=== PATIENT | female | born 1950 | race Caucasian/White ===

== ENCOUNTER 2021-05-16 12:10 | Outpatient (CLI) | payer BC, SELFPAY ==
--- NOTE | ~2021-05-16 | XR_ITS ---
XR thoracic spine 3V DATE: 05/16/2021 12:47 INDICATION: Back pain TECHNIQUE: AP, lateral, swimmer views COMPARISON: None FINDINGS: There is diffuse osteopenia. There is mild anterolisthesis at C4-5. There is severe degenerative disc disease at C5-6. The thoracic pedicles are intact. No fracture or bone destruction is detected. There is degenerative spurring of the thoracic spine, more prominent in the lower thoracic spine. No paraspinal soft tissue thickening. IMPRESSION: Osteopenia Mild anterolisthesis at C4-5 Severe degenerative disc disease at C5-6 Degenerative spurring of the thoracic spine, greater in the lower thoracic region Reviewed, dictated and finalized at location B. IMPRESSION: Osteopenia Mild anterolisthesis at C4-5 Severe degenerative disc disease at C5-6 Degenerative spurring of the thoracic spine, greater in the lower thoracic judy on
== END 2021-05-16 12:11 | disposition home or self-care (01) ==
LOC: CHSIMG 12:16
PROVIDERS: PCP Family Medicine; Visit Provider Family Medicine
DX: M54.9 Dorsalgia, unspecified (principal)
CPT/HCPCS: 72072

== ENCOUNTER 2021-08-29 08:22 | Emergency (ER) | payer BC, SELFPAY ==
[2021-08-29 09:07] VITALS: BP 210/108; PULSE 98; RESP 20; TEMP 36.1; O2SAT 98
--- NOTE | 2021-08-29 09:11 | ED.BACK ---
HPI - Back Pain/Injury General Chief Complaint: Unspecified Stated Complaint: back pain/possible UTI/spasm back to front Time Seen by Provider: 08/29/21 09:11 Source: patient and family Mode of arrival: ambulatory Limitations: no limitations History of Present Illness HPI Narrative: 70-year-old woman with a history of chronic low back pain comes emergency department complaining of worsening pain in her low back, and pain in both flanks. She states she has been having intermittent burning pain in her upper back and sides and that the pain is severe. She denies worsening incontinence, hematuria, dysuria and urinary frequency. She states that she is not had a bowel movement in 3 days. She denies fever, nausea, vomiting, abdominal pain, sore throat, cough or cold symptoms, rash and has no lower extremity weakness or numbness. MD elicited complaint: back pain Pertinent past history: prior back pain Onset (ago): day(s) (2) Timing: constant and progressively worsening Severity: severe Similar Symptoms Previously: Yes Quality: burning, sharp and aching Location: lumbar spine, left flank and right flank Radiation: none Exacerbating factors: movement and sitting upright Relieving factors: immobilization Associated symptoms: difficulty walking (Antalgic gait) Treatments prior to arrival: NSAIDS, acetaminophen and prescription analgesics (Muscle relaxer) Related Data Home Medications Medication Instructions Recorded Confirmed albuterol sulfate [ProAir HFA] 2 puff INHALATION QID 08/29/21 08/29/21 atorvastatin 40 mg PO HS 08/29/21 08/29/21 cyclobenzaprine 10 mg PO TID PRN 08/29/21 08/29/21 levothyroxine 125 mcg PO DAILY 08/29/21 08/29/21 lisinopril 20 mg PO DAILY 08/29/21 08/29/21 Allergies Allergy/AdvReac Type Severity Reaction Status Date / Time No Known Allergies Allergy Verified 08/29/21 09:17 Review of Systems Review of Systems: All systems reviewed & are unremarkable except as noted in HPI and below Constitutional: Constitutional: Denies chills, Denies fever(s) and Denies weakness ENT: Denies nasal congestion and Denies sore throat Cardiovascular: Cardiovascular: Denies chest pain and Denies radiating jaw, neck or arm pain Respiratory: Respiratory: Denies cough, Denies dyspnea and Denies wheezing Gastrointestinal: Gastrointestinal: Denies abdominal pain, Reports constipation, Denies diarrhea, Denies nausea and Denies vomiting Genitourinary: Genitourinary: Denies hematuria, Denies nocturia, Denies dysuria and Reports urinary incontinence (Longstanding, frequent and mild stress incontinence) Musculoskeletal: Musculoskeletal: Reports back pain, Denies arthralgias and Denies joint swelling Integumentary/Breasts: Skin/Breast: Denies pruritus, Denies erythema and Denies rash Neurologic: Denies vertigo, Denies dizziness, Denies syncope and Denies weakness Hematologic/Lymphatic: Hematologic/Lymphatic: Denies easy bleeding and Denies easy bruising Allergic/Immunologic: Allergic/Immunologic: Denies lip swelling and Denies throat swelling PMFSH Past Medical History Medical History (Updated 08/29/21 @ 11:32 by Jese Aldrich MD) Chronic low back pain COPD (chronic obstructive pulmonary disease) Dyslipidemia Hypertension Hypothyroidism Surgical History Surgical History (Updated 08/29/21 @ 09:52 by Jese Aldrich MD) History of Social History Social History (Updated 08/29/21 @ 09:52 by Jese Aldrich MD) Smoking status: Current every day smoker Substance use: never Living arrangements: with family Exam Const: General: alert Nutritional Appearance: well nourished Orientation/consciousness: patient oriented x3 Limitations: no limitations Other: Moderate acute distress. HENMT: Mouth: Yes moist mucous membranes Throat: posterior oropharynx normal Eyes: Conjunctivae: conjunctivae normal Pupils: Equal, round and reactive pupils present EOM: EOMs intact bilaterally Resp: Eff
[2021-08-29 09:20] LABS: Add Urine Microscopic? YES; Appearance Urine Clear (Clear); Bilirubin Urine Negative (Negative); Blood Urine 2+ (Negative); Color Urine Light Yellow (Yellow); Glucose Urine UA Negative (Negative); Ketones Urine 1+ (Negative); Leukocyte Esterase Ur 1+ (Negative); Nitrate Urine Negative (Negative); Protein Urine Trace (Negative); Specific Grav Ur 1.025 (1.010-1.020); Urobilinogen Urine 0.2 mg/dL (0.2-1.0); pH Urine 6.5 (5.0-8.0)
[2021-08-29 09:28] LABS: Bacteria Urine 1+ /hpf; Squamous Epithelial Cell Urine Moderate /hpf (Few)
[2021-08-29] MEDS: HYDROmorphone HCL INJ (*CRX) 2 MG/ML VIAL 0.5 MG IV PUSH (09:35)
[2021-08-29] MEDS: ONDANSETRON INJ 4 MG/2 ML VIAL IV PUSH (09:36)
[2021-08-29 09:58] LABS: Basophils Absolute Auto 0.05 K/mm3 (0.00-0.10); Basophils Percent Auto 0.4 % (0.0-1.0); Eosinophils Absolute Auto 0.03 K/mm3 (0.02-0.50); Eosinophils Percent Auto 0.3 % (1.0-6.0); Hematocrit 48.6 % (35.0-42.0); Hemoglobin 15.5 g/dL (11.7-13.8); Immature Granulocyte Absolute 0.02 K/mm3 (0.00-0.00); Immature Granulocyte Percent A 0.2 % (0.0-0.0); Lymphocytes Absolute Auto 2.09 K/mm3 (1.10-4.50); Mean Corpuscular HGB Conc 31.9 g/dL (32.0-36.0); Mean Corpuscular Hemoglobin 28.6 pg (27.0-31.0); Mean Corpuscular Volume 89.7 fL (78.0-102.0); Mean Platelet Volume 10.6 fl (9.2-11.8); Monocytes Absolute Auto 0.69 K/mm3 (0.10-0.90); Monocytes Percent Auto 5.9 % (2.0-11.0); Neutrophils Absolute Auto 8.7 K/mm3 (1.7-7.2); Neutrophils Percent Auto 75.2 % (50.0-70.0); Platelet Count Result 267 K/mm3 (150-420); Red Blood Count 5.42 M/mm3 (4.20-5.40); Red Cell Distribution Width 15.4 % (11.6-14.4); White Blood Count 11.6 K/mm3 (4.8-10.8)
[2021-08-29 10:12] LABS: Alanine Aminotransferase 17 U/L (14-59); Albumin Level 3.6 g/dL (3.4-5.0); Alkaline Phosphatase 229 U/L (46-116); Anion Gap 12 mmol/L (8-16); Aspartate Amino Transferase 15 U/L (15-37); Bilirubin,Total 0.6 mg/dL (0.00-1.00); Blood Urea Nitrogen 11 mg/dL (7-18); Carbon Dioxide 26 mmol/L (21-32); Chloride 95 mmol/L (98-108); Estimated CRCL calculation 62 ml/min; Estimated Glomerular Filt Rate > 60; Glucose 114 mg/dL (70-99); Osmolality Calculated 276 mOsm/kg (285-295); Potassium 3.8 mmol/L (3.5-5.1); Sodium 133 mmol/L (136-145); Total Protein 8.4 g/dL (6.4-8.2)
[2021-08-29 12:43] VITALS: BP 159/100; PULSE 82; RESP 20; TEMP 36.5; O2SAT 97
--- NOTE | 2021-08-29 17:18 | PC.NURSE ---
Family called stating [facility] was out of the [address] Valdemar stark to change prescription to 250 mg, [address] Aldrich also spoke with Iris from [facility].
== END 2021-08-29 12:51 | disposition home or self-care (01) ==
PROVIDERS: Emergency Provider Emergency Medicine; PCP Family Medicine
DX: N12 Tubulo-interstitial nephritis, not specified as acute or chronic (principal); M54.50 Low back pain, unspecified
CPT/HCPCS: 36415; 80053; 81001; 85025; 87040; 96365; 96375; 99283; 99284; J1170; J1956; J2405

== ENCOUNTER 2021-08-31 14:23 | Emergency (ER) | payer BC, SELFPAY ==
--- NOTE | ~2021-08-31 | CT_ITS ---
EXAMINATION: CT abdomen pelvis w con DATE: 08/31/2021 17:52 INDICATION: Low abdominal pain, nausea, constipation for 5 days. TECHNIQUE: Computed tomography (CT) of the abdomen and pelvis was performed with 100 cc Omnipaque 350 intravenous contrast. Automated exposure control and iterative reconstruction technique were employe d. Exam dose: 1201.30 mGy-cm total exam DLP. COMPARISON: None. FINDINGS: Minimal dependent posterior right lower lobe atelectasis. Minimal atelectasis at the left l pb base. Normal heart size. No pericardial or pleural effusion. Small sliding hiatal hernia. The liver, gallbladder, bile ducts, pancreas, pancreatic duct and spleen as well as adrenal glands ap pear normal. 4.1 cm left renal cyst. Several right renal cyst measuring approximately 7.5, 6 and 16 mm dimension. 8.3 x 16 mm posterior mid to lower right renal calculus with attenuation of 1700 Hounsfield units. The urinary bladder is unremarkable. 2.1 cm left ovarian cyst. The uterus and adnexal areas are otherwise unremarkable. No CT evidence of appendicitis. There is some fluid levels in the ascending and transverse colon. The re is a prominent amount fecal material in the ascending colon and cecum into a lesser extent rectum and sigmoid colon. No bowel obstruction, bowel wall thickening, pneumatosis or intraperitoneal free a ir is detected. There is atherosclerotic calcification of the abdominal aorta and prominent calcification at the orig ins of the renal arteries. No abdominal aortic aneurysm. No intraperitoneal or retroperitoneal or pel bandar mass lesion or adenopathy or ascites is detected. There is extensive mixed lytic and osteosclerotic metastatic disease scattered throughout the visuali zed lower thoracic and lumbar spine and pelvic bones, sacrum, proximal femurs There are large lytic lesions at T8-T9 vertebral bodies posteriorly on the right, extending into the posterior elements and spinal canal. 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 Large lytic lesion s at posterior right T8 and T9 vertebrae, extending into the thoracic spinal canal Reviewed, dictated and finalized at Location A. Reviewed, dictated and finalized at location A. ITAL TECHNICIAN IMPRESSION: Small sliding hiatal hernia Bilateral renal cysts 8.3 x 16 mm nonobstructing right renal calculus 2 x 1 cm left ovarian cyst Fluid levels in the right colon, moderate amount of fecal material in the colon ; no bowel obstruction Extensive mixed lytic and osteosclerotic metastatic disease of the axial skelet on. Large lytic lesions at posterior right T8 and T9 vertebrae, extending into the thoracic spinal canal
[2021-08-31 15:10] VITALS: BP 159/96; PULSE 95; RESP 20; TEMP 36.1; O2SAT 95
--- NOTE | 2021-08-31 15:45 | ED.BACK ---
HPI - Back Pain/Injury General Chief Complaint: Unspecified Stated Complaint: kidney injection/no bowel movement since 08/26/2021 Time Seen by Provider: 08/31/21 15:45 Source: patient Mode of arrival: ambulatory Limitations: no limitations History of Present Illness HPI Narrative: 70-year-old woman comes in today complaining of back pain and constipation. Patient was seen here 5 days ago and prescribed Cipro after was thought she had pyelonephritis. She states that she has not passed stool, is not eating well and not drinking well. She has had no vomiting, fever, blood in her stool, cough or cold symptoms, chest pain or shortness of breath. Her daughter gave her an enema this morning and she has been taking oral [id number] pills for her constipation. MD elicited complaint: back pain Pertinent past history: prior back pain Onset (ago): week(s) Timing: constant Severity: severe Similar Symptoms Previously: Yes Quality: sharp and aching Location: lumbar spine and thoracic spine Exacerbating factors: movement Relieving factors: none Associated symptoms: abdominal pain Treatments prior to arrival: prescription analgesics Work related injury: No Related Data Home Medications Medication Instructions Recorded Confirmed albuterol sulfate [ProAir HFA] 2 puff INHALATION QID 08/29/21 08/31/21 atorvastatin 40 mg PO HS 08/29/21 08/31/21 cyclobenzaprine 10 mg PO TID PRN 08/29/21 08/31/21 levothyroxine 125 mcg PO DAILY 08/29/21 08/31/21 lisinopril 20 mg PO DAILY 08/29/21 08/31/21 Allergies Allergy/AdvReac Type Severity Reaction Status Date / Time No Known Allergies Allergy Verified 08/31/21 15:17 Review of Systems Review of Systems: All systems reviewed & are unremarkable except as noted in HPI and below Constitutional: Constitutional: Denies chills and Denies fever(s) Eyes: Eyes: Denies photophobia ENT: Denies nasal congestion and Denies sore throat Cardiovascular: Cardiovascular: Denies chest pain Respiratory: Respiratory: Denies cough, Denies dyspnea and Denies wheezing Gastrointestinal: Gastrointestinal: Reports abdominal pain, Reports constipation, Denies diarrhea, Reports nausea and Denies vomiting Genitourinary: Genitourinary: Denies hematuria, Denies nocturia and Denies dysuria Musculoskeletal: Musculoskeletal: Reports back pain, Denies arthralgias and Denies joint swelling Integumentary/Breasts: Skin/Breast: Denies pruritus, Denies erythema and Denies rash Neurologic: Denies vertigo, Denies dizziness, Denies syncope, Denies focal weakness and Denies numbness Hematologic/Lymphatic: Hematologic/Lymphatic: Denies easy bleeding and Denies easy bruising Allergic/Immunologic: Allergic/Immunologic: Denies lip swelling and Denies throat swelling PMFSH Past Medical History Medical History Chronic low back pain COPD (chronic obstructive pulmonary disease) Dyslipidemia Hypertension Hypothyroidism Surgical History Surgical History History of Social History Social History Smoking status: Current every day smoker Substance use: never Exam Const: General: healthy appearing and alert Nutritional Appearance: well nourished Orientation/consciousness: patient oriented x3 Limitations: no limitations Other: Moderate acute distress. HENMT: Mouth: Yes moist mucous membranes Throat: posterior oropharynx normal Eyes: Conjunctivae: conjunctivae normal Pupils: Equal, round and reactive pupils present EOM: EOMs intact bilaterally Resp: Effort & Inspection: normal respiratory effort and not labored Auscultation: clear to auscultation bilaterally, no rales, no rhonchi and no wheezes Cardio: Rate: regular rate Rhythm: regular rhythm Heart sounds: no murmurs GI: GI Palp: Yes Soft to palpation and Yes Tenderness to palpation pre
[2021-08-31] MEDS: ONDANSETRON INJ 4 MG/2 ML VIAL IV PUSH (16:19)
[2021-08-31] MEDS: SODIUM CHLORIDE 0.9% IV 1,000 ML 999 ML IV CONT ×2 (16:19→18:58)
[2021-08-31 16:58] LABS: Alanine Aminotransferase 20 U/L (14-59); Albumin Level 3.4 g/dL (3.4-5.0); Alkaline Phosphatase 223 U/L (46-116); Anion Gap 12 mmol/L (8-16); Aspartate Amino Transferase 34 U/L (15-37); Bilirubin,Total 0.4 mg/dL (0.00-1.00); Blood Urea Nitrogen 24 mg/dL (7-18); Calcium 9.1 mg/dL (8.5-10.1); Carbon Dioxide 25 mmol/L (21-32); Chloride 94 mmol/L (98-108); Estimated CRCL calculation 51 ml/min; Estimated Glomerular Filt Rate 57; Glucose 110 mg/dL (70-99); Osmolality Calculated 277 mOsm/kg (285-295); Potassium 3.8 mmol/L (3.5-5.1); Sodium 131 mmol/L (136-145); Total Protein 7.4 g/dL (6.4-8.2)
[2021-08-31 16:59] LABS: Occult Blood Negative (Negative)
[2021-08-31 16:59] LABS: Basophils Absolute Auto 0.05 K/mm3 (0.00-0.10); Basophils Percent Auto 0.3 % (0.0-1.0); Eosinophils Absolute Auto 0.05 K/mm3 (0.02-0.50); Eosinophils Percent Auto 0.3 % (1.0-6.0); Hematocrit 47.4 % (35.0-42.0); Hemoglobin 15.3 g/dL (11.7-13.8); Immature Granulocyte Absolute 0.07 K/mm3 (0.00-0.00); Immature Granulocyte Percent A 0.5 % (0.0-0.0); Lymphocytes Percent Auto 23.1 % (18.0-42.0); Mean Corpuscular HGB Conc 32.3 g/dL (32.0-36.0); Mean Corpuscular Hemoglobin 29.2 pg (27.0-31.0); Mean Corpuscular Volume 90.5 fL (78.0-102.0); Mean Platelet Volume 12.3 fl (9.2-11.8); Neutrophils Absolute Auto 9.8 K/mm3 (1.7-7.2); Neutrophils Percent Auto 68.8 % (50.0-70.0); Platelet Count Result 276 K/mm3 (150-420); Red Blood Count 5.24 M/mm3 (4.20-5.40); Red Cell Distribution Width 15.9 % (11.6-14.4); White Blood Count 14.3 K/mm3 (4.8-10.8)
[2021-08-31] MEDS: HYDROmorphone HCL INJ (*CRX) 2 MG/ML VIAL 0.5 MG IV PUSH (17:54)
== END 2021-08-31 19:42 | disposition home or self-care (01) ==
PROVIDERS: Emergency Provider Emergency Medicine; PCP Family Medicine
DX: M89.9 Disorder of bone, unspecified (principal); K59.03 Drug induced constipation
CPT/HCPCS: 36415; 74177; 80053; 82272; 85025; 96361; 96374; 96375; 99283; 99284; J1170; J2405; J7030; Q9967

== ENCOUNTER 2021-09-02 14:34 | Outpatient (CLI) | payer BC, SELFPAY ==
[2021-09-02 14:55] LABS: Basophils Absolute Auto 0.05 K/mm3 (0.00-0.10); Basophils Percent Auto 0.4 % (0.0-1.0); Eosinophils Absolute Auto 0.03 K/mm3 (0.02-0.50); Eosinophils Percent Auto 0.2 % (1.0-6.0); Hematocrit 48.6 % (35.0-42.0); Hemoglobin 15.1 g/dL (11.7-13.8); Immature Granulocyte Absolute 0.04 K/mm3 (0.00-0.00); Immature Granulocyte Percent A 0.3 % (0.0-0.0); Lymphocytes Absolute Auto 3.19 K/mm3 (1.10-4.50); Lymphocytes Percent Auto 25.6 % (18.0-42.0); Mean Corpuscular HGB Conc 31.1 g/dL (32.0-36.0); Mean Corpuscular Hemoglobin 28.2 pg (27.0-31.0); Mean Corpuscular Volume 90.7 fL (78.0-102.0); Mean Platelet Volume 10.6 fl (9.2-11.8); Monocytes Percent Auto 9.6 % (2.0-11.0); Neutrophils Absolute Auto 7.9 K/mm3 (1.7-7.2); Neutrophils Percent Auto 63.9 % (50.0-70.0); Platelet Count Result 266 K/mm3 (150-420); Red Blood Count 5.36 M/mm3 (4.20-5.40); Red Cell Distribution Width 15.1 % (11.6-14.4); White Blood Count 12.5 K/mm3 (4.8-10.8)
[2021-09-02 14:56] LABS: Add Urine Microscopic? YES; Appearance Urine Clear (Clear); Bilirubin Urine Negative (Negative); Blood Urine 1+ (Negative); Color Urine Light Yellow (Yellow); Glucose Urine UA Negative (Negative); Ketones Urine Negative (Negative); Leukocyte Esterase Ur 1+ (Negative); Nitrate Urine Negative (Negative); Protein Urine Trace (Negative); Specific Grav Ur >= 1.030 (1.010-1.020); Urobilinogen Urine 0.2 mg/dL (0.2-1.0); pH Urine 5.5 (5.0-8.0)
[2021-09-02 15:04] LABS: Bacteria Urine 2+ /hpf; RBC Urine 0-2 /hpf (0-2); Renal Epithelial Cells Urine Few /hpf; Squamous Epithelial Cell Urine Few /hpf (Few)
[2021-09-02 15:40] LABS: Alanine Aminotransferase 16 U/L (14-59); Albumin Level 3.4 g/dL (3.4-5.0); Alkaline Phosphatase 241 U/L (46-116); Anion Gap 9 mmol/L (8-16); Aspartate Amino Transferase 21 U/L (15-37); Bilirubin,Total 0.7 mg/dL (0.00-1.00); Blood Urea Nitrogen 12 mg/dL (7-18); Calcium 9.8 mg/dL (8.5-10.1); Carbon Dioxide 30 mmol/L (21-32); Chloride 96 mmol/L (98-108); Estimated Glomerular Filt Rate > 60; Glucose 103 mg/dL (70-99); Osmolality Calculated 279 mOsm/kg (285-295); Potassium 3.9 mmol/L (3.5-5.1); Sodium 135 mmol/L (136-145); Total Protein 7.6 g/dL (6.4-8.2)
--- NOTE | 2021-09-02 16:24 | PC.NURSE ---
1615 office aware of over 1700ml of warm soapy water given over 2 enemas. only 200ml of measured return. 1st enema pad was wet and unable to retain all. 2nd enema pad was not even damp and only returned 200ml of brown water with very small and few flecks of stool. patient denies need to go further. manually checked and can not feel stool in rectum. 1650 office called back and does not not any further enemas given. encourage paatient to buy glycerin supp and attempt this. stop taking miralx. if no results or pain is worse see er to be evaluated. 1700 patient vocalizes understanding. as ready to leave patient has to use bsc. exspelled 500ml of muddy looking liquid. does have very sm pieces of brown stool.
== END 2021-09-02 14:35 | disposition home or self-care (01) ==
LOC: CHSTREATRM 14:35
PROVIDERS: PCP Family Medicine; Visit Provider Family Medicine
DX: N39.0 Urinary tract infection, site not specified (principal); K59.00 Constipation, unspecified
CPT/HCPCS: 36415; 80053; 81001; 85025; 87086; 99211; G0463

== ENCOUNTER 2021-09-06 11:54 | Outpatient (CLI) | payer BC, SELFPAY ==
--- NOTE | ~2021-09-06 | MMUS_ITS ---
EXAMINATION: MM diagnostic angel BI w bennie, US breast BI complete HISTORY: Left breast thickening TECHNIQUE: Additional 3-D tomosynthesis images of the breasts were performed and synthetic 2-D images were generated. CAD analysis was submitted and interpreted. High resolution bilateral complete breas t ultrasound was performed. COMPARISON:. 06/24/2013. BREAST PARENCHYMAL COMPOSITION: Breast composed of scattered areas of fibroglandular density. FINDINGS: MAMMOGRAPHIC FINDINGS: There is a cluster of indeterminate calcifications in the lower outer quadrant of the right breast wh ich were not definitely seen on prior examination.There is a new irregular shaped mass with enterprise architect manager ural distortion in the mid/upper outer quadrant of the left breast which measures up to 8.4 cm in gre atest dimension, although not well circumscribed. ULTRASOUND: Complete bilateral US of all 4 quadrants of the breasts and retroareolar region was reviewed. Right breast ultrasound: Normal heterogeneous echotexture without focal mass. Left breast ultrasound: There is a large irregular shaped hypoechoic mass at 12:00, 6 cm from the nip ple extending to the subareolar location with indistinct margins and mixed posterior attenuation sondra uring greater than 7.7 cm greatest dimension. This corresponds to the area area of mammographic jose alejandro rn. IMPRESSION: 1. Clustered indeterminate calcifications lower outer quadrant of the right breast. Stereotactic biop sy recommended. 2. Large ill-defined left breast mass with architectural distortion in the mid outer aspect of the le ft breast by mammography with large hypoechoic mass with indistinct margins by ultrasound. This mass measures up to 8.4 cm on mammography. Ultrasound-guided left breast biopsy recommended. BI-RADS category 5, highly suggestive of malignancy. Reviewed, dictated and finalized at location A. CTOR OF ENTERPRISE ARCHITECTURE IMPRESSION: 1. Clustered indeterminate calcifications lower outer quadrant of the right lukas ast. Stereotactic biopsy recommended. 2. Large ill-defined left breast mass with architectural distortion in the mid outer aspect of the left breast by mammography with large hypoechoic mass with indistinct margins by ultrasound. This mass measures up to 8.4 cm on mammograph y. Ultrasound-guided left breast biopsy recommended. BI-RADS category 5, highly suggestive of malignancy.
--- NOTE | ~2021-09-06 | DEXA_ITS ---
Bone Density Report Name: EDWARD BAZAN Age: 70 Sex: Female Ethnicity: White Date of : 1950 Indication: hyperparathyroidism; prior fracture; Referring Provider: Eliot Webster Study: Bone densitometry was performed. Exam Date: September 06, 2021 Accession number: [id number] Bone Density: Region BMD T-score Z-score Classification AP Spine(L1-L4) 0.843 -1.9 0.2 Osteopenia Femoral Neck (Left) 0.647 -1.8 0.0 Osteopenia Total Hip (Left) 0.742 -1.6 -0.1 Osteopenia Femoral Neck (Right) 0.713 -1.2 0.6 Osteopenia Total Hip (Right) 0.820 -1.0 0.5 Normal Femoral Neck Mean 0.680 -1.5 0.3 Osteopenia Total Hip Mean 0.781 -1.3 0.2 Osteopenia World Health Organization criteria for BMD impression classify patients as: Normal (T-score at or above -1.0), Osteopenia (T-score between -1.0 and -2.5), or Osteoporosis (T-score at or below -2.5). 10-year Fracture Risk(1): Major Osteoporotic Fracture 16% Hip Fracture 4.2% Reported Risk Factors: [place] (), Neck BMD=0.647, BMI=36.6, previous fracture, smoking (1) FRAX(R) Version 3.08. Fracture probability calculated for an untreated patient. Fracture probability may be lower if the patient has received treatment. Clinical Information Provided by Patient: Has had a low trauma fracture Smokes Has used the following medications: Vitamin D Has the following medical conditions: Hyperparathyroidism, copd Patient maximum height was 62 Menopause Age: 46 No regular weight bearing exercise Does not regularly consume dairy products Drinks caffeinated beverages Onset of menses at age 13 Number of children 3 Impression: The patient has low bone mass, based on the Total Spine T-score. The patient has risk factors, including: smoking, previous fracture. Discussion: BONE DENSITY IS LOW AT ONE OR MORE SKELETAL SITES. This patient's lowest T-score is low at one or more skeletal sites. It meets the World Health Organization's (WHO) criteria for ?low bone mass? (T-score between -1.0 and -2.5). The patient's 10-year risk of fracture as calculated by FRAX is less than the threshold where pharmacological therapy is recommended by the National Osteoporosis Foundation (NOF). However, all treatment decisions require clinical judgment and consideration of individual patient factors, including patient preferences, comorbidities, previous drug use, risk factors not captured in the FRAX model (e.g., frailty, falls, vitamin D deficiency, increased bone turnover, interval significant decline in bone density) and possible under or overestimation of fracture risk by FRAX. The patient should follow a healthful lifestyle (good nutrition with adequate calcium and vitamin D, and appropriate weight-bearing exercise). Follow-Up: Consider repeat
--- NOTE | ~2021-09-06 | CT_ITS ---
EXAMINATION:CT lung screening DATE: 09/06/2021 12:24 INDICATION: Encounter for screening for malignant neoplasm of respiratory organs. Current smoker with 50 pack year history. TECHNIQUE: Computed tomography (CT) of the chest was performed without intravenous contrast. Automate d exposure control and iterative reconstruction technique were employed. The dose-length product (DLP ) was 192.88 mGy-cm. COMPARISON: CT abdomen and pelvis 08/31/2021 FINDINGS: There is mild atelectasis in right middle lobe and lingula. There is a 3 mm nodule in right upper lobe. No pleural effusion. The heart size is normal. There are coronary artery calcifications. No pericardial effusion. There is a 13 mm stone in right kidney. There is a 4.1 cm cyst in left kidn ey. There is a healing fracture of left sixth rib. There are innumerable mixed lytic and splenic lesi ons in the bones with central canal stenosis at T8. IMPRESSION: 1. Lung-RADS category 2S: Benign appearance or behavior. 2. Widespread metastatic disease of bone. CT-guided biopsy of the right ilium is recommended. Thoraci c spine MRI without and with contrast is recommended to evaluate for cord compression at T8. Reviewed, dictated and finalized at location A. YTICS DEVELOPER IMPRESSION: 1. Lung-RADS category 2S: Benign appearance or behavior. 2. Widespread metastatic disease of bone. CT-guided biopsy of the right ilium i s recommended. Thoracic spine MRI without and with contrast is recommended to e valuate for cord compression at T8.
== END 2021-09-06 11:55 | disposition home or self-care (01) ==
LOC: CHSIMG 11:56
PROVIDERS: PCP Family Medicine; Visit Provider Family Medicine
DX: R92.8 Other abnormal and inconclusive findings on diagnostic imaging of breast (principal); M85.88 Other specified disorders of bone density and structure, other site; Z12.2 Encounter for screening for malignant neoplasm of respiratory organs; Z87.891 Personal history of nicotine dependence
CPT/HCPCS: 71271; 76641; 77062; 77066; 77080; G0279

== ENCOUNTER 2021-11-10 09:59 | Outpatient (NON) | payer BC, SELFPAY ==
[2021-11-10 10:15] LABS: Basophils Absolute Auto 0.03 K/mm3 (0.00-0.10); Basophils Percent Auto 0.7 % (0.0-1.0); Eosinophils Absolute Auto 0.15 K/mm3 (0.02-0.50); Eosinophils Percent Auto 3.5 % (1.0-6.0); Hematocrit 35.8 % (35.0-42.0); Immature Granulocyte Absolute 0.02 K/mm3 (0.00-0.00); Immature Granulocyte Percent A 0.5 % (0.0-0.0); Lymphocytes Absolute Auto 1.75 K/mm3 (1.10-4.50); Lymphocytes Percent Auto 40.6 % (18.0-42.0); Mean Corpuscular HGB Conc 30.7 g/dL (32.0-36.0); Mean Corpuscular Hemoglobin 28.6 pg (27.0-31.0); Mean Platelet Volume 9.9 fl (9.2-11.8); Monocytes Absolute Auto 0.15 K/mm3 (0.10-0.90); Monocytes Percent Auto 3.5 % (2.0-11.0); Neutrophils Absolute Auto 2.2 K/mm3 (1.7-7.2); Neutrophils Percent Auto 51.2 % (50.0-70.0); Platelet Count Result 204 K/mm3 (150-420); Red Blood Count 3.85 M/mm3 (4.20-5.40); Red Cell Distribution Width 17.2 % (11.6-14.4); White Blood Count 4.3 K/mm3 (4.8-10.8)
== END 2021-11-10 10:00 | disposition home or self-care (01) ==
LOC: CHSHH 10:02
DX: C50.112 Malignant neoplasm of central portion of left female breast (principal); Z17.0 Estrogen receptor positive status [ER+]
CPT/HCPCS: 36415; 85025

== ENCOUNTER 2021-12-06 12:30 | Outpatient (NON) | payer BC, SELFPAY ==
[2021-12-06 12:54] LABS: Basophils Absolute Auto 0.04 K/mm3 (0.00-0.10); Basophils Percent Auto 0.9 % (0.0-1.0); Eosinophils Absolute Auto 0.03 K/mm3 (0.02-0.50); Eosinophils Percent Auto 0.7 % (1.0-6.0); Hematocrit 33.3 % (35.0-42.0); Hemoglobin 10.5 g/dL (11.7-13.8); Immature Granulocyte Absolute 0.02 K/mm3 (0.00-0.00); Immature Granulocyte Percent A 0.5 % (0.0-0.0); Lymphocytes Absolute Auto 1.99 K/mm3 (1.10-4.50); Lymphocytes Percent Auto 45.9 % (18.0-42.0); Mean Corpuscular HGB Conc 31.5 g/dL (32.0-36.0); Mean Corpuscular Hemoglobin 30.7 pg (27.0-31.0); Mean Corpuscular Volume 97.4 fL (78.0-102.0); Monocytes Absolute Auto 0.17 K/mm3 (0.10-0.90); Monocytes Percent Auto 3.9 % (2.0-11.0); Neutrophils Absolute Auto 2.1 K/mm3 (1.7-7.2); Neutrophils Percent Auto 48.1 % (50.0-70.0); Platelet Count Result 262 K/mm3 (150-420); Red Blood Count 3.42 M/mm3 (4.20-5.40); Red Cell Distribution Width 21.1 % (11.6-14.4); White Blood Count 4.3 K/mm3 (4.8-10.8)
== END 2021-12-06 12:31 | disposition home or self-care (01) ==
LOC: CHSHH 12:34
DX: C50.812 Malignant neoplasm of overlapping sites of left female breast (principal); Z17.0 Estrogen receptor positive status [ER+]
CPT/HCPCS: 36415; 85025

== ENCOUNTER 2021-12-26 02:34 | Day surgery (SDC) | payer BC, SELFPAY ==
--- NOTE | 2021-12-21 15:30 | PC.NURSE ---
Report to the Outpatient Waiting Room, entrance under the green pavilion located off [facility], at time 1000 on date __12/26/21 . OR Time: __1200 . - You and your visitor will be asked a series of questions to screen for COVID 19 for your protection. - Only one visitor is allowed at this time. - The patient visitor is requested to leave or wait in car when not with patient. - A mask is required within the hospital. Patients may have clear liquids (water, carbonated beverages, clear teas, apple juice) until 3 hours prior to surgery with a maximum of 20 ounces. - No food from midnight until time of surgery - Infants may have breast milk until 4 hours before surgery, infant formula 6 hours prior to surgery. - Children will be allowed to drink immediately following surgery. If applicable, please bring a bottle or sippy cup to assist with drinking. Juice, water, soda, and popsicles are readily available. For infants on formula, please bring formula the day of surgery. Pacifiers are allowed. Take the following medications with a SIP of water the morning of surgery: __INHALER,LEVOTHYROXINE,IBRANCE Medications to discontinue per physician _JAZMIN PER DR GONZALEZ.. ALL VITAMINS 3 DAYS PRE OP Date to take last dose___12/22/21 Please no make-up, nail azeri, hairspray, perfume, deodorant, or body powder the day of surgery. No jewelry (including any body piercings) or valuables the day of surgery, leave them at home. Please take a shower or bath the night before, or the morning of, surgery with an antibacterial soap. Wear comfortable, loose fitting clothing. Children are encouraged to wear pajamas. - Jewelry must be removed prior to entering the operating room. Rings and piercings that are not removed may be cut off. - The hospital will not accept responsibility for valuables. - Please leave all valuables, including medications, at home the day of surgery. If you are going home after surgery, a licensed bus driver must drive you home. - NO public transportation without another adult. - We recommend that an adult stay with you for 24 hours following discharge. - We also recommend that you do not drive, make important decision, drink alcoholic beverages, or take any drugs that were not prescribed by your health care provider for at least 24 hours after your discharge time. For Pediatric surgeries, we recommend two adults accompany the child home (only one inside the building at this time). Follow any additional instructions given to you from your surgeon. If you or anyone in your household have experienced Covid symptoms in the past week, please notify your surgeon or the nurse liaison at the phone number below for possible testing. Telephone instructions given to __PATIENT and asked if any additional questions and then verbalized understanding. Patient advised to call surgeon office or pre surgery nurse liaison [phone] if any additional questions.
[2021-12-21 15:38] VITALS: BMI 36.8
--- NOTE | 2021-12-26 10:45 | WPDANESEPPF ---
Anes - Initial Pre Proc Eval Procedure: Operation Date: 12/26/21 12:00 Proposed Procedures p Hysteroscopy Dilation and Curettage - Wei Smiley MD Date/Time: 12/26/21 10:45 Surgeon: Wei Smiley MD Pre Op Diagnosis: Uterine Polyp, Post Menopausal Bleeding Patient Data Age: 71 Gender: F Height: 1.57 m Weight: 91.2 kg Allergies Allergy/AdvReac Type Severity Reaction Status Date / Time No Known Allergies Allergy Verified 12/21/21 15:13 Home Medications Medication Instructions Recorded Confirmed Type albuterol sulfate [ProAir HFA] 2 puff INHALATION PRN PRN 08/29/21 12/21/21 History atorvastatin 40 mg PO HS 08/29/21 12/21/21 History levothyroxine 125 mcg PO DAILY 08/29/21 12/21/21 History cholecalciferol (vitamin D3) 1,250 mcg PO WEEKLY 12/21/21 12/21/21 History fluticasone propionate [Flonase 2 spray INTRANASAL DAILY 12/21/21 12/21/21 History Allergy Relief] fluticasone propionate [Flovent 2 puff INHALATION DAILY 12/21/21 12/21/21 History HFA] gabapentin 300 mg PO HS 12/21/21 12/21/21 History letrozole 2.5 mg PO HS 12/21/21 12/21/21 History palbociclib [Ibrance] 125 mg PO 21 12/21/21 12/21/21 History rivaroxaban [Xarelto] 20 mg PO DAILY 12/21/21 12/21/21 History Patient hx anesthesia problems: none Family hx anesthesia problems: none Results Review: All pre-operative results and documents have been reviewed as part of the pre-operative evaluation. [facility] Past Medical History Medical History Chronic low back pain COPD (chronic obstructive pulmonary disease) Dyslipidemia Hypertension Hypothyroidism Surgical History Surgical History History of Social History Social History Smoking packs per day: 1 Smoking cigarettes per day: 20.0 Years smoked: 50 Smoking pack-years: 50.00 Smoking status: Former smoker Tobacco type: cigarettes Smoking end date: 08/06/21 Substance use: never Living arrangements: with family Spiritual care concerns: No Anes - Eval Final PreProcedure Day of Procedure 12/26/21 10:45 Patient weight: obese Heart: regular rate and rhythm Lungs: clear to auscultation Airway: Mallampati scale class II Neurological: alert and oriented Last oral intake: >/= 8 hours ASA classification: III Emergent: no Anesthetic plan: proceed Anesthesia type and monitoring: general GIVS and standard monitoring Results Review: All pre-operative results and documents have been reviewed as part of the pre-operative evaluation. Informed Consent: The patient's anesthetic plan and its attendant risks and benefits were discussed with the patient/family/POA. Questions were solicited and answers provided to the satisfaction of the patient/family/POA.
[2021-12-26 10:49] VITALS: BP 110/96; PULSE 82; RESP 14; TEMP 36.4; O2SAT 96
[2021-12-26] MEDS: ACETAMINOPHEN 500 MG TABLET 1000 MG PO (10:56)
[2021-12-26] MEDS: LACTATED RINGERS 1,000 ML 30 ML IV CONT (10:57)
--- NOTE | 2021-12-26 11:55 | PM.IMHP ---
H&P: HPI History of Present Illness Date/Time: 12/26/21 11:55 71 y/o with light vaginal bleeding. 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 On Ibrance and Femara. Chief Complaint: Bleeding Review of Systems Review of Systems: All systems reviewed & are unremarkable except as noted in HPI and below PMFSH Past Medical History Medical History Breast cancer in female Chronic low back pain COPD (chronic obstructive pulmonary disease) Dyslipidemia Hypertension Hypothyroidism Surgical History Surgical History History of Social History Social History Smoking packs per day: 1 Smoking cigarettes per day: 20.0 Years smoked: 50 Smoking pack-years: 50.00 Smoking status: Former smoker Tobacco type: cigarettes Smoking end date: 08/06/21 Substance use: never Living arrangements: with family Spiritual care concerns: No Meds Home Medications and Allergies Home Medications Medication Instructions Recorded Confirmed Type albuterol sulfate [ProAir HFA] 2 puff INHALATION PRN PRN 08/29/21 12/21/21 History atorvastatin 40 mg PO HS 08/29/21 12/21/21 History levothyroxine 125 mcg PO DAILY 08/29/21 12/21/21 History cholecalciferol (vitamin D3) 1,250 mcg PO WEEKLY 12/21/21 12/21/21 History fluticasone propionate [Flonase 2 spray INTRANASAL DAILY 12/21/21 12/21/21 History Allergy Relief] fluticasone propionate [Flovent 2 puff INHALATION DAILY 12/21/21 12/21/21 History HFA] gabapentin 300 mg PO HS 12/21/21 12/21/21 History letrozole 2.5 mg PO HS 12/21/21 12/21/21 History palbociclib [Ibrance] 125 mg PO 21 12/21/21 12/21/21 History rivaroxaban [Xarelto] 20 mg PO DAILY 12/21/21 12/21/21 History Allergies Allergy/AdvReac Type Severity Reaction Status Date / Time No Known Allergies Allergy Verified 12/21/21 15:13 Vital Signs Vital Signs - 24 hr 12/26/21 10:49 Temperature 36.4 C Pulse Rate 82 Respiratory Rate 14 Blood Pressure 110/96 H Pulse Oximetry 96 Exam Const: Orientation/consciousness: patient oriented x3 Other: Well-developed, well-nourished female in no acute distress. Neck: Thyroid: thyroid normal Lymphatic: no lymphadenopathy noted (in neck, axilla or inguinal nodes) Resp: Effort & Inspection: normal respiratory effort Auscultation: clear to auscultation bilaterally Cardio: Rate: regular rate Rhythm: regular rhythm Heart sounds: S1 normal heart sound present and S2 normal heart sound present GI: Other: ABD: Soft, nontender, nondistended. No guarding or rebound tenderness. No hepatosplenomegaly. : General: Yes no CVA tenderness Other: Deferred to OR Back/Spine/Pelvis: Back: no CVA tenderness Skin: General skin exam: normal color and no rashes or lesions noted Neuro: General: patient oriented x3 Extrem: Other: Extremities: nontender with no edema Psych: Mental Status: mental status grossly normal Affect: normal affect Assessment and Plan Assessment and plan (1) Postmenopausal bleeding: Code(s): N95.0 - Postmenopausal bleeding Status: Acute Assessment and Plan: A: Postmenopausal vaginal bleeding. P: Offered hysteroscopy with dilation and sharp curettage. She understands risks of surgery to include risks of anesthesia, risks of pain, infection, bleeding, blood products, thromboembolic phenomena and damage to adjacent structures such as bowel, bladder, ureters, blood vessels and nerves. She understands all these risks and elects to proceed with surgery.
--- NOTE | 2021-12-26 11:59 | WPDHPUPDATE1 ---
History and Physical Update Update Date/Time: 12/26/21 11:59 History and Physical has been reviewed, including an updated exam of the patient. There are NO changes in the patient's condition. Risks, benefits, and alternatives have been discussed and questions answered. Patient agrees to proceed with procedure.
[2021-12-26] MEDS: LIDOCAINE HCL 1% PF 30 ML VIAL INFILTRATE (12:20)
--- NOTE | 2021-12-26 12:38 | P.OP_ITS ---
Procedure Note - Detailed Date of Procedure 12/26/21 Pre-op Diagnosis Post Menopausal Bleeding Post-op Diagnosis Same Procedure Performed Hysteroscopy Dilation and sharp curettage Endometrial polypectomy Surgeon Wei Smiley MD Anesthesia MAC and Local (1% lidocaine) Findings Endometrial polyp Description of Procedure The patient was taken to the operating room where she was prepared and draped in the usual sterile fashion in the dorsal lithotomy position. The bladder was drained with a red rubber catheter. A sterile speculum was placed into the vagina. The anterior lip of the cervix was grasped with single-tooth tenaculum. Ten mL of 1% lidocaine was administered in a paracervical block. The cervix was then gently dilated using Hegar dilators until a 7 mm dilator could be passed. Hysteroscopy was performed using sterile saline as a distention medium. Findings are as noted above. The polyp forceps were advanced and the polyp was easily removed. Sharp curettage was then performed, and endometrial curettings were collected on a Telfa pad and passed off to be sent to pathology. A second look was taken with the hysteroscope to confirm removal of the polyp. Hemostasis was excellent. Sponge, lap, needle and instrument counts were corre ct. The patient was awakened and taken to the recovery room in stable condition. I was present and scrubbed through the entire procedure. Implants None Estimated Blood Loss 5 Drains No Packing No Pathology Yes (Endometrial curettings) Complications None Condition Stable Disposition PACU
[2021-12-26 12:41] VITALS: BP 110/60; PULSE 64; RESP 16; O2SAT 98
[2021-12-26 13:10] VITALS: BP 153/77; PULSE 60; RESP 16; O2SAT 98
[2021-12-26 13:40] VITALS: BP 152/72; PULSE 68; RESP 16
[2021-12-26 14:10] VITALS: BP 152/66; PULSE 66; RESP 16
== END 2021-12-26 14:20 | disposition home or self-care (01) ==
PROVIDERS: PCP Family Medicine; Visit Provider Obstetrics & Gynecology
PROC: 0U5B8ZZ Destruction of Endometrium, Via Natural or Artificial Opening Endoscopic (ICD-10-PCS; CPT 58563; principal; 2021-12-26 12:00)
DX: N95.0 Postmenopausal bleeding (principal); N84.0 Polyp of corpus uteri; C50.919 Malignant neoplasm of unspecified site of unspecified female breast; C79.51 Secondary malignant neoplasm of bone; Z79.01 Long term (current) use of anticoagulants; Z79.51 Long term (current) use of inhaled steroids; Z87.891 Personal history of nicotine dependence; E03.9 Hypothyroidism, unspecified; J44.9 Chronic obstructive pulmonary disease, unspecified; E78.5 Hyperlipidemia, unspecified; I10 Essential (primary) hypertension; E66.9 Obesity, unspecified; Z68.36 Body mass index [BMI] 36.0-36.9, adult
CPT/HCPCS: 58558; 88305; A9270; J2250; J2704; J3010; J7030; J7120

== ENCOUNTER 2022-01-27 07:57 | Outpatient (RCR) | payer BC, SELFPAY ==
--- NOTE | 2022-02-03 07:30 | PTOPEVAL ---
Thank you for referring Eugenia Menchaca to [facility].? The patient is scheduled to be seen for therapy? ____x/week for ___ weeks. Please review, sign, date and return this plan of care QUINTON. I agree with and certify that the following plan of care is medically necessary. 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 Cardiovascular History Hx Deep Vein Thrombosis Yes: 09/2021 RT LEG ON XARELTO Hx Hypercholesterolemia Yes Respiratory History Hx Chronic Obstructive Pulmonary Disease Yes: INHALER (COPD) Gastrointestinal History Hx Gastrointestinal Disorders No Significant History Genitourinary History Hx Genitourinary Disorders No Significant History Musculoskeletal History Hx Osteoporosis Yes Hx Other Musculoskeletal Disorders Yes: LT BREAST CA WITH KENISHA TO SPINE.TUMOR REMOVED FROM SPINE Hematological History Hx Hematological Disorders No Significant History Endocrine History Hx Hypothyroidism Yes HEENT History Hx Other HEENT Disorders Yes: GLASSES Integumentary History Hx Skin Disorders No Significant History Reproductive History Hx Post Menopausal Yes Hx Other Reproductive Disorders Yes: UTERINE POLYP,POST MENOPAUSAL BLEEDING.LT BREAST CA NO SURGERY.ORAL CHEMO Psychosocial History Hx Psychiatric Disorders No Significant History Pain History History of Any Previous or Ongoing No Significant History Instance of Pain Anesthesia History Hx Anesthesia Reactions No Significant History Other History Hx Cancer Yes: LT BREAST CA WITH KENISHA TO SPINE Hx Chemotherapy Yes: ORAL CHEMO Hx Radiation Therapy Yes: ONE TREATMENT ON SPINE OCTOBER 2021 Evaluation Information Problem Diagnosis Decreased Endurance Onset 12/09/21 Subjective Information Pt reports that she feels like Query Text:As Reported By Patient/ her legs are numb and she Family does not have control of where her feet are. She says that she has numbness from her
--- NOTE | 2022-04-19 21:35 | BUPTOPEVAL1 ---
Assessment and note entered by CINTHIA Vivas PT Evaluation Information Assessment Status Progress Assessment Status Evaluation Diagnosis decreased endurance, generalized weakness Onset 12/09/21 Subjective Information patient reports she has had several things going on in her life and she has been unable to make it in to therapy. she reports she has had no falls. she reports she has been doing her exercises at home since 03/16/22 when she was last here. however, she reports she has not been able to do much walking due to the layout of her home being small and having lots of turns. Reported Pain Level Pain Score 0: Self Report Assessment PT Clinical Summary mrs. cano presents to skilled PT services for her 8th skilled PT visit. however, she has not been to skilled PT in nearly a month due to other medical issues. as of this date, she would like to conitnue skilled PT, and her goals are still appropriate to continue skilled PT. she would do well to continue at a decreased frequency of 2x weekly moving forward. PT Clinical Summary Pt is a 71 y/o female presenting to therapy following a surgery to remove a thoracic spinal tumor with impaired LE sensation, balance, endurance, and strength. She was only able to ambulate 200 feet before needing to rest and displayed strong reliance on her walker. Pt would do well to attend therapy to increase the strength and endurance of her LEs, decrease her fall risk, and allow her to complete ADLs more independently . evaluation performed by [facility] under the supervision of Fan Vivas DPT Plan of Care Interventions Gait Training,Neuro Re-education,Patient/Caregiver Educati,Therapeutic Activities,Therapeutic Exercise PT Services Indicated Yes PT Services Indicated Yes PT Services Indicated Yes PT Services Indicated Yes PT Services Indicated Yes PT Services Indicated Yes PT Services Indicated Yes PT Services Indicated Yes PT Services Indicated Yes PT Services Indicated Yes
--- NOTE | 2022-05-23 07:13 | PCPTNOTE ---
mrs. cano has not been to therapy in over a month. as of this date, all progress towards goals will be taken from her most recent evaluation/note, and patient will be DC'd from skilled PT services. ZAINAB
== END 2022-04-12 23:59 | disposition home or self-care (01) ==
LOC: CHSPT 07:57
PROVIDERS: PCP Family Medicine; Visit Provider Family Medicine
DX: C41.2 Malignant neoplasm of vertebral column (principal)
CPT/HCPCS: 97110; 97161; 97162; 97164; 97530

== ENCOUNTER 2024-11-11 13:51 | Outpatient (CLI) | payer BC, SELFPAY ==
--- NOTE | ~2024-11-11 | XR_ITS ---
EXAMINATION: XR chest 2V DATE: 11/11/2024 14:14 INDICATION: Cough and fever TECHNIQUE: frontal and lateral views of the chest were obtained. COMPARISON: Chest radiograph dated CT dated 09/06/2021 FINDINGS: Lungs are clear with no focal airspace opacities, pulmonary edema, pleural effusion or pneumothorax. Heart size is normal. Right paracardial fat pad. T6-T11 instrumented posterior spinal fusion with bella ateral vertical genia and pedicle screws at T6, T7, T10 and T11. T12 compression fracture. IMPRESSION: 1. No acute cardiopulmonary disease. Reviewed, dictated and finalized at location B.
[2024-11-11 14:13] LABS: Hematocrit 37.1 % (35.0-42.0); Hemoglobin 11.6 g/dL (11.7-13.8); Mean Corpuscular HGB Conc 31.3 g/dL (32-36); Mean Corpuscular Hemoglobin 34.7 pg (27.0-31.0); Mean Corpuscular Volume 111.1 fL (78.0-102.0); Mean Platelet Volume 10.1 fl (9.2-11.8); Platelet Count Result 126 K/mm3 (150-420); Red Blood Count 3.34 M/mm3 (4.20-5.40); Red Cell Distribution Width 15.7 % (11.6-14.4); White Blood Count 2.8 K/mm3 (4.8-10.8)
--- OUTSIDE RECORDS SUMMARY | 2024-11-11 15:23 | XMS_ITS ---
4 on 09/16/2021 by Bret Villalpando MD at [facility] N/A: Spine Thoracic Depuy Synthes Spine [id number] / / Depuy Spine [id number] Expedium 6mm 40mm 1 Innie Polyaxial Spine Screw Bone Titanium - [id number] Implanted:Qty: 2 on 09/16/2021 by Bret Villalpando MD at [facility] N/A: Spine Thoracic Depuy Synthes Spine [id number] / / Depuy Spine [id number] Expedium 6mm 45mm 1 Innie Polyaxial Spine Screw Bone Titanium - [id number] Implanted:Qty: 2 on 09/16/2021 by Bret Villalpando MD at [facility] N/A: Spine Thoracic Depuy Synthes Spine [id number] / / Depuy Spine [id number] Viper 2 150mm Straight Chris Spinal Titanium Mis - [id number] Implanted:Qty: 2 on 09/16/2021 by Bret Villalpando MD at [facility] N/A: Spine Thoracic Depuy Synthes Spine [id number] / / Procedures Procedure Name Priority Date/Time Associated Diagnosis Comments MANUAL DIFFERENTIAL Routine 09/22/2024 1 1:17 AM HAND TWISTER Malignant neoplasm of overlapping 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, estrogen receptor positive (HCC) EGFR Routine 09/22/2024 11:17 AM HAND TWISTER Malignant neoplasm of overlapping 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, estrogen receptor positive (HCC) DIFFERENTIAL AUTO Routine 09/22/2024 11: 17 AM HAND TWISTER Malignant neoplasm of overlapping 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, estrogen receptor positive (HCC) PHOSPHORUS Routine 09/22/2024 11:17 AM HAND TWISTER Malignant neoplasm of overlapping 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, estrogen receptor positive (HCC) CANCER ANTIGEN 15-3 Routine 09/22/2024 1 1:17 AM HAND TWISTER Malignant neoplasm of overlapping 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, estrogen receptor positive (HCC) CBC WITH AUTO DIFFERENTIAL Routine 09/22/2024 11:17 AM HAND TWISTER Malignant neoplasm of overlapping 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, estrogen receptor positive (HCC) COMPREHENSIVE METABOLIC PANEL Routine 09/22/2024 11:17 AM HAND TWISTER Malignant neoplasm of overlapping 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, estrogen receptor positive (HCC) from Last 3 Months Results * eGFR (09/22/2024 11:17 AM HAND TWISTER) eGFR 65 >=60 mL/min/1. 73 m2 Comment: Interpretive Data Reference Interval Normal >/= 90 mL/min/1.73m2 Mildly decreased* 60 - 89 mL/min/1.73m2 Mildly to moderately decreased 45 - 59 mL/min/1.73m2 Moderately to severely decreased 30 - 44 mL/min/1.73m2 Severely decreased 15 - 29 mL/min/1.73m2 Kidney Failure < 15 mL/min/1.73m2 *Relative to young adult level Estimated glomerular filtration rate is determined by the 2020 CKD-EPI equation recommended by the National Kidney Foundation (A Unifying Approach to GFR Estimation: Recommendations of the NKF-ASK Task Force on Reassessing the Inclusion of Race in Diagnosing Kidney Disease, JASN 2020). The CKD-EPI equation should not be used for patients with unstable renal function and has not been validated in children and those over 70. Current interpretive data was last reviewed 2021. Blood 09/22/2024 11:1 7 AM HAND TWISTER 09/22/2024 11:17 AM HAND TWISTER Lianna Kelly MD LAB BLOOD ORDERABLES F inal Result [facility] Department [place] [address] * (ABNORMAL) Differential, auto (09/22/2024 11:17 AM HAND TWISTER) Neutrophil abs 1.4(L) 1.5 - 6.5 K/cumm Comment:Testing performed by : [facility], [address] [place] [id number] Imm gran abs 0.0 0.0 - 0.1 K/cumm [facility] Lymphocyte abs 1.1 0.8 - 3.3 K/cumm [facility] Monocyte abs 0.2 0.2 - 0.8 K/cumm [facility] Eosinophil abs 0.0 0.0 - 0.5 K/cumm [facility] Basophil abs 0.0 0.0 - 0.1 K/cumm [facility] Neutrophil pct 48.5 % [facility] Comment: Interpretive Data Percent cell count reference ranges are not reported, since discordance with absolute values may lead to misinterpretation of CBC data. Current Interpretive Data was last revised on 2017. Imm gran pct 1.1 % [facility] Comment: Interpretive Data Percent cell count reference ranges are not reported, since discordance with absolute values may lead to misinterpretation of CBC data. Current Interpretive Data was last revised on 2017. Lymphocyte pct 40.4 % [facility] Comment: Interpretive Data Percent cell count reference ranges are not reported, since discordance with absolute values may lead to misinterpretation of CBC data. Current Interpretive Data was last revised on 2017. Monocyte pct 8.2 % [facility] Comment: Interpretive Data Percent cell count reference ranges are not reported, since discordance with absolute values may lead to misinterpretation of CBC data. Current Interpretive Data was last revised on 2017. Eosinophil pct 0.7 % [facility] Comment: Interpretive Data Percent cell count reference ranges are not reported, since discordance with absolute values may lead to misinterpretation of CBC data. Current Interpretive Data was last revised on 2017. Basophil pct 1.1 % [facility] Comment: Interpretive Data Percent cell count reference ranges are not reported, since discordance with absolute values may lead to misinterpretation of CBC data. Current Interpretive Data was last revised on 2017. Blood 09/22/2024 11:1 7 AM HAND TWISTER 09/22/2024 11:17 AM HAND TWISTER us Lianna Kelly MD LAB BLOOD ORDERABLES F inal Result [facility] Department [place] [address] * (ABNORMAL) CBC with auto differential (09/22/2024 11:17 AM HAND TWISTER) [facility] WBC 2.8(L) 3.8 - 9.9 K/cumm Comment:Testing performed by : [facility], [address] [place] [address] Hgb 11.5(L) 11.9 - 15.5 g/dL [facility] Comment:Testing performed by : [address] [address] Hct 35.2(L) 35.6 - 45.5 % [facility] Comment:Testing performed by : [address] [address] Plt 120(L) 150 - 400 K/cumm [facility] Comment:Testing performed by : [address] [address] MPV 10.1 9.1 - 12.3 fL [facility] RBC 3.25(L) 3.90 - 5.20 M/cumm [facility] MCV 108.3(H) 81.3 - 96.4 fL [facility] MCH 35.4(H) 27.1 - 33.3 pg [facility] MCHC 32.7 32.3 - 35.7 g/dL [facility] RDW CV 16.3(H) 11.1 - 14.9 % [facility] RDW SD 64.4(H) 35.7 - 48.1 fL [facility] NRBC abs 0.00 0.00 - 0.01 K/cumm [facility] Blood 09/22/2024 11:1 7 AM HAND TWISTER 09/22/2024 11:17 AM HAND TWISTER us Lianna Kelly MD LAB BLOOD ORDERABLES F inal Result [facility] Department [place] [address] * Cancer antigen 15-3 (09/22/2024 11:17 AM HAND TWISTER) [facility] CA 15-3 ag 17.3 <=25.0 units/mL Comment: Interpretive Data The Gigi CA 15-3 assay procedure was used. Results from different manufacturers or methods may not be comparable. Serial testing should be performed using the same method. Blood 09/22/2024 11:1 7 AM HAND TWISTER 09/22/2024 12:54 PM HAND TWISTER Lianna Kelly MD LAB BLOOD ORDERABLES F inal Result Performing Organization Address [facility] [place] [address] * (ABNORMAL) Manual Differential (09/22/2024 11:17 AM HAND TWISTER) [facility] Differential Auto RBC morphology Present(A ) [facility] Polychromasia 3-7/HPF(A ) [facility] Anisocytosis Slight(A) [facility] Macrocytes 3-7/HPF(A ) [facility] Elliptocytes 3-7/HPF(A ) [facility] Platelet estimate Decreased (A) [facility] Blood 09/22/2024 11:1 7 AM HAND TWISTER 09/22/2024 11:17 AM HAND TWISTER Lianna Kelly MD LAB BLOOD ORDERABLES F inal Result Performing Organization Address [facility] de Phone Number [facility] [place] [address] * Phosphorus (09/22/2024 11:17 AM HAND TWISTER) [facility] Phosphorus, pl 3.0 2.3 - 4.5 mg/dL Comment:Testing performed by : [facility], [address] [place] [address] Blood 09/22/2024 11:1 7 AM HAND TWISTER 09/22/2024 11:17 AM HAND TWISTER Lianna Kelly MD LAB BLOOD ORDERABLES F inal Result [facility] Department [place] [address] * Comprehensive metabolic panel (09/22/2024 11:17 AM HAND TWISTER) Sodium 139 135 - 145 mmol/L Comment:Testing performed by : [facility], [address] [place] [address] Potassium, pl 4.0 3.3 - 4.9 mmol/L [facility] Chloride 104 97 - 110 mmol/L [facility] CO2 27 22 - 32 mmol/L [facility] Anion gap 8 2 - 15 mmol/L [facility] BUN 8 6 - 25 mg/dL [facility] Creatinine 0.93 0.60 - 1.10 mg/dL [facility] Glucose 113 70 - 199 mg/dL [facility] Comment: Interpretive Data Fasting glucose >/= 126 mg/dl is diagnostic for diabetes. Fasting is defined as no caloric intake for at least 8 hours. Fasting glucose between 100 mg/dl to 125 mg/dl is diagnostic of prediabetes. In a patient with classic symptoms of hyperglycemia or hyperglycemic crisis, a random glucose >/= 200 mg/dl is diagnostic for diabetes. In the absence of unequivocal hyperglycemia, results should be confirmed by repeat testing. The classification and Diagnosis of Diabetes Diabetes Care 2021; 46: S19-S40. Current interpretive data was last revised 2022. Calcium 9.7 8.5 - 10.3 mg/dL [facility] Bilirubin, total 0.4 0.1 - 1.2 mg/dL [facility] Protein, pl 7.6 6.5 - 8.5 g/dL [facility] Albumin 4.0 3.5 - 5.0 g/dL [facility] Alk phos 93 40 - 130 Units/L [facility] ALT 12 7 - 45 Units/L [facility] AST 15 10 - 45 Units/L [facility] Blood 09/22/2024 11:1 7 AM HAND TWISTER 09/22/2024 11:17 AM HAND TWISTER Lianna Kelly MD LAB BLOOD ORDERABLES F inal Result [facility] Department [place] [address] from Last 3 Months Insurance [employer] [place] GENERIC COPAY ASSIST [employer] [place] MED[place] Advance Directives For more information, please contact: [phone] * Full Code (Latest Code Status on File) Date Activated Date Inactivated Comments 09/15/2021 12:02 PM 09/21/2021 7:08 PM Care Teams Accounting Manager Controller Relationship Specialty Start Date End Date Eliot Webster MD [address] [place] [address] PCP - General Family Medicine 10/11/21 [place] [address] [place] [address] # LL LL [address] [place], [place] [phone] Radiation Oncologist Radiation Oncology 10/10/21 Lianna Kelly MD [address] [facility], [facility] [address] [place] [address] Medical Oncologist/Audio Video Repairer Medical Oncology 10/10/21 Bret Villalpando MD [address] [place], [place] [id number] Surgeon Neurosurgery 10/10/21 Referral Summary Created on: November 11, 2024 Eugenia Menchaca : 1950 Sex: Female Author Organization [facility] Address [address] [place] [address] Care Team Providers Care Accounting Manager Controller Name Role Phone Hector Evangelista MD Unavailable Lianna Kelly MD Unavailable [phone] Bret Villalpando MD Unavailable [phone] Eliot Webster MD Primary Care Provide r Encounters Date Type Department Care Team Description 11/10/2024 Telephone [facility] Oncology [address] [place] [phone] Leslee Vasquez, SERJIO 09/22/2024 12:30 PM HAND TWISTER Infusion [address] [address] Malignant neoplasm metastatic to bone (HCC) (Primary Dx); Malignant neoplasm of overlapping 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, estrogen receptor positive (HCC); FPC (current) use of aromatase inhibitors 09/22/2024 11:00 AM HAND TWISTER Lab [address] [phone] Malignant neoplasm of overlapping 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, estrogen receptor positive (HCC) 09/22/2024 11:30 AM HAND TWISTER Office Visit [facility] Oncology [address] [place] [address] Lianna Kelly MD Malignant neoplasm of overlapping 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, estrogen receptor positive (HCC) (Primary Dx) from Last 3 Months Allergies No known active allergies Medications atorvastatin (LIPITOR) 40 mg tablet Take 1 tablet (40 mg total) by mouth daily Active fluticasone propionate (FLOVENT HFA) 110 mcg/actuation inhaler Inhale 1 puff 2 (two) times a day Rinse mouth with water after use. Do not swallow. 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 Active oxyCODONE (ROXICODONE) 10 mg tabletIndication s:Pain Take 1 tablet (10 mg total) by mouth every 4 (four) hours as needed for pain 0 09/21/19 22 Active Additional Information Patient not taking.Reported on 09/22/2024 albuterol HFA (PROVENTIL HFA,VENTOLIN HFA,PROAIR HFA) 90 mcg/actuation inhaler as needed 09/29/19 22 Active loratadine (CLARITIN) 10 mg tablet TAKE 1 TABLET BY MOUTH EVERY DAY 90 tablet 3 09/06/19 24 Active lisinopriL (PRINIVIL,ZESTRI L) 20 mg tablet Take 1 tablet (20 mg total) by mouth daily 10/17/19 24 Active HYDROcodone-acet aminophen (NORCO) 5-325 mg per tabletIndication s:Pain Take 1 tablet by mouth every 6 (six) hours as needed for pain 100 tablet 11/05/19 24 Active Additional Information Patient not taking.Reported on 09/22/2024 hydrocortisone 2.5 % ointmentIndicati ons:Rash APPLY TO AFFECTED AREA TWICE A DAY 20 g 2 03/05/20 24 Active nystatin powder Apply topically 4 (four) times a day 30 g 1 03/06/20 24 2024 Active Ibrance 100 mg capsuleIndicatio ns:Malignant neoplasm of overlapping 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, estrogen receptor positive (HCC) TAKE 1 CAPSULE BY MOUTH 1 TIME A DAY FOR 21 DAYS OF A 28 DAY CYCLE 21 capsule 3 05/23/20 24 Active exemestane (AROMASIN) 25 mg tablet TAKE 1 TABLET (25 MG TOTAL) BY MOUTH DAILY TAKE AFTER A MEAL. 90 tablet 3 06/11/20 24 2024 Active cyclobenzaprine (FLEXERIL) 5 mg tablet TAKE 1 TABLET (5 MG TOTAL) BY MOUTH 3 (THREE) TIMES A DAY NEEDED FOR MUSCLE SPASMS 90 tablet 07/14/20 24 Active palbociclib (IBRANCE) 100 mg capsuleIndicatio ns:Malignant neoplasm of overlapping 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, estrogen receptor positive (HCC) Take 1 capsule by mouth daily with food. Take 7 days off before starting next cycle (21 days on 7 days off) 21 capsule 3 07/28/20 24 Active Xarelto 20 mg tablet TAKE 1 TABLET BY MOUTH EVERY DAY 90 tablet 2 08/28/19 25 Active palbociclib (IBRANCE) 100 mg capsuleIndicatio ns:Malignant neoplasm of overlapping 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, estrogen receptor positive (HCC) Take 1 capsule by mouth daily With food. Take 7 days off before starting next cycle (21 days on 7 days off) 21 capsule 3 09/22/19 25 Active cyclobenzaprine (FLEXERIL) 5 mg tablet TAKE 1 TABLET (5 MG TOTAL) BY MOUTH 3 (THREE) TIMES A DAY NEEDED FOR MUSCLE SPASMS 90 tablet 11/04/19 25 Active clobetasoL (TEMOVATE) 0.05 % creamIndications :Subacute cutaneous lupus erythematosus APPLY TOPICALLY 2 (TWO) TIMES A DAY APPLY TO RASH ON SCALP, NECK AND UPPER BACK. 30 g 11/05/19 25 Active ergocalciferol (VITAMIN D) 50,000 unit capsule TAKE 1 CAPSULE BY MOUTH ONE TIME PER WEEK 12 capsule 2 11/06/19 25 Active ergocalciferol (VITAMIN D) 50,000 unit capsule Take 1 capsule (50,000 Units total) by mouth once a week 4 capsule 6 03/31/20 24 2024 Discontinued clobetasoL (TEMOVATE) 0.05 % creamIndications :Subacute cutaneous lupus erythematosus APPLY TOPICALLY 2 (TWO) TIMES A DAY APPLY TO RASH ON SCALP, NECK AND UPPER BACK. 30 g 06/17/20 24 2024 Discontinued cyclobenzaprine (FLEXERIL) 5 mg tablet TAKE 1 TABLET (5 MG TOTAL) BY MOUTH 3 (THREE) TIMES A DAY NEEDED FOR MUSCLE SPASMS 90 tablet 10/03/19 25 2024 Discontinued Active Problems Problem Noted Date Diagnosed Date FPC (current) use of aromatase inhibitors 04/27/2022 Malignant neoplasm metastatic to bone 10/26/2021 Malignant neoplasm of overla pping sites of left female breast 10/10/2021 Cancer Staging:Clinical stage from 09/16/2021:Stage IV(cT3, cN0, pM1, GX, ER+, NV+, HER2-) - Signed by Hector Evangelista MD on 10/10/2021 Hypertension, unspecified type 09/15/2021 Spinal cord compression 09/14/2021 Overview (09/15/2021): Added automatically from request for surgery [id number] Immunizations Immunization Administration Dates Next Due Influenza, Quadrivalent, Hig h Dose, Preservative Free, Intrr 09/21/2021 Influenza, Quadrivalent, Spl it, Preservative Free, Intramuscular 07/14/2019,06/07/2017 Influenza, Trivalent, IM (MDV) 06/09/2013 Influenza, Trivalent, Preservative Free, Intramu scular 03/23/2015 Pneumococcal Conjugate PCV 13 06/07/2017 Pneumococcal Polysaccharide PPV23 03/23/2015 Tdap 12/20/2015 ZOSTER Recombinant 02/26/2020,03/12/2018 Social History Tobacco Use Types Packs/Day Years Used Date Smoking Tobacco: Former Cigarettes 0.5 54.3 S tarted: 1971 Smokeless Tobacco: Never Tobacco Cessation:Counseling Given: No Comments:2 - 1 ppd cigarettes AUDIT-C Answer Date Recorded Q1: How often do you have a drink containing alc ohol? Never 05/18/2022 Average Number of Drinks Not on file 022 Q3: How often do you have si x or more drinks on one occasion? Never 05/18/2022 Comments No Sex and Gender Information Value Date Recorded Sex Assigned at Not on file Legal Sex Female 10:20 AM HAND TWISTER Gender Identity Not on file Sexual Orientation Not on file Last Filed Vital Signs Vital Sign Reading Time Taken Comments Blood Pressure 182/91 09/22/2024 11:39 AM HAND TWISTER Pulse 88 09/22/2024 11:39 AM HAND TWISTER Temperature 36.6 C (97.9 F) 09/22/2024 11:39 AM HAND TWISTER Respiratory Rate 18 09/22/2024 11:3 9 AM HAND TWISTER Oxygen Saturation 98% 09/22/2024 11: 39 AM HAND TWISTER Inhaled Oxygen Concentration - - Weight 117.1 kg (258 lb 3.2 oz) 025 11:39 AM HAND TWISTER Height 157.5 cm (5' 2 ) 09/21/2022 9:48 AM HAND TWISTER Body Mass Index 47.23 09/21/2022 9:48 AM HAND TWISTER Plan of Treatment Not on file Medical Devices Implanted Type Area Sandblasting Supervisor Device Identifier Shelf Expiration Date Model / Serial / Lot Allosource [id number] Crushed Chip Frozen Graft 30ml Bone Cancellous - [id number] Implanted:Qty: 1 on 09/16/2021 by Bret Villalpando MD at [facility] N/A: Spine Thoracic Allosource 08/27/2025 [id number] / / [id number] [facility] [id number] Actifuse Abx Resorbable; Scaffold; Osteostimulativ e; Granule 1-2 - [id number] Implanted:Qty: 1 on 09/16/2021 by Bret Villalpando MD at [facility] N/A: Spine Thoracic [facility] 10/08/2022 [id number] / / [id number] Depuy Spine [id number] Expedium 1 Inner Monoaxial Spine Screw Set Titanium - [id number] Implanted:Qty: 8 on 09/16/2021 by Bret Villalpando MD at [facility] N/A: Spine Thoracic Depuy Synthes Spine [id number] / / Depuy Spine [id number] Expedium 5.5mm 40mm Polyaxial Spine Screw Bone Titanium 5.5mm Chris - [id number] Implanted:Qty:
--- OUTSIDE RECORDS SUMMARY | 2024-11-11 15:23 | XMS_ITS | Encounter Summary ---
Author Organization [facility] Address [address] [place] [address] Phone Care Team Providers Care Printed Circuit Board Panels Trimmer Name Role Phone Hector Evangelista MD Unavailable Lianna Kelly MD Unavailable [phone] Bret Villalpando MD Unavailable [phone] Eliot Webster MD Primary Care Provide r Encounter Details Date Type Department Care Team (Latest Contact Info) Description 07/16/2022 Orders Only [facility] Scanning, Provider Social History Tobacco Use Types Packs/Day Years Used Date Smoking Tobacco: Former Cigarettes 0.5 54.3 S tarted: 1971 Smokeless Tobacco: Never Comments:08/07 - ppd cigaret alex AUDIT-C Answer Date Recorded Q1: How often do you have a drink containing alc ohol? Never 05/18/2022 Average Number of Drinks Not on file 022 Q3: How often do you have si x or more drinks on one occasion? 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 Gender Identity Not on file Sexual Orientation Not on file documented as of this encounter Plan of Treatment Not on file documented as of this encounter Procedures Procedure Name Priority Date/Time Associated Diagnosis Comments SCAN - LABS 07/16/2022 documented in this encounter Results * SCAN - LABS (07/16/2022) us Provider Scanning Final Result documented in this encounter Visit Diagnoses Not on filedocumented in this encounter Care Teams Printed Circuit Board Panels Trimmer Relationship Specialty Start Date End Date Eliot Webster MD [address] [place], [place] [id number] PCP - General Family Medicine 10/11/21 Hector Evangelista MD [address] [facility] # LL LL [address] [place] [address] Radiation Oncologist Radiation Oncology 10/10/21 Lianna Kelly MD [address] DIV MEDICAL ONCOLOGY, [address] [place], [place] [id number] Medical Oncologist/Bottom Sander Medical Oncology 10/10/21 Bret Villalpando MD [address] [place] [address] Surgeon Neurosurgery 10/10/21 documented as of this encounter"
--- OUTSIDE RECORDS SUMMARY | 2024-11-11 15:23 | XMS_ITS | Encounter Summary ---
Author Organization [facility] Address [address] [place] [address] Phone Care Team Providers Care Billing Customer Service Representative Name Role Phone Hector Evangelista MD Unavailable Lianna Kelly MD Unavailable Bret Villalpando MD Unavailable [phone] Eliot Webster MD Primary Care Provide r Encounter Details Date Type Department Care Team (Latest Contact Info) Description 12/26/2021 Orders Only [facility] Scanning, Provider Social History Tobacco Use Types Packs/Day Years Used Date Smoking Tobacco: Former Cigarettes 0.5 54.3 S tarted: 1971 Smokeless Tobacco: Never Comments:08/07 - 1 ppd cigaret alex AUDIT-C Answer Date Recorded Q1: How often do you have a drink containing alc ohol? Monthly or less 09/15/2021 Q2: How many drinks containi ng alcohol do you have on a typical day when you are drinking? 1 or 2 09/15/2021 Q3: How often do you have si x or more drinks on one occasion? 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 Gender Identity Not on file Sexual Orientation Not on file documented as of this encounter Plan of Treatment Not on file documented as of this encounter Procedures Procedure Name Priority Date/Time Associated Diagnosis Comments SCAN - PATHOLOGY 12/26/2021 12:00 AM CDT documented in this encounter Results * SCAN - PATHOLOGY (12/26/2021 12:00 AM CDT) us Provider Scanning Final Result documented in this encounter Visit Diagnoses Not on filedocumented in this encounter Care Teams Billing Customer Service Representative Relationship Specialty Start Date End Date Eliot Webster MD [address] [place] [address] PCP - General Family Medicine 10/11/21 Hector Evangelista MD [address] [facility] [address] [place] [address] Radiation Oncologist Radiation Oncology 10/10/21 Lianna Kelly MD [address] [facility] MEDICAL ONCOLOGY, [address] [place] [address] Medical Oncologist/Plant Physiology Teacher Medical Oncology 10/10/21 Bret Villalpando MD [address] [place] [address] Surgeon Neurosurgery 10/10/21 documented as of this encounter
--- OUTSIDE RECORDS SUMMARY | 2024-11-11 15:23 | XMS_ITS ---
Author Organization 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 04/27/2022 Malignant neoplasm metastatic to bone 10/26/2021 Malignant neoplasm of overla pping sites of left female breast 10/10/2021 Cancer Staging:Clinical stage from 09/16/2021:Stage IV(cT3, cN0, pM1, GX, ER+, CO+, HER2-) - Signed by Hector Evangelista MD on 10/10/2021 Hypertension, unspecified type 09/15/2021 Spinal cord compression 09/14/2021 Overview (09/15/2021): Added automatically from request for surgery [id number] Current Treatment and Therapy Plans Denosumab (XGEVA) Injection* Plan Start Date:08/24/2022 Plan Provider:Lianna Kelly MD Linked Problems Malignant neoplasm of overla pping 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, estrogen receptor positive (HCC)Malignant neoplasm metastatic to bone (HCC)shelter (current) use of aromatase inhibitors Treatment Medications No medications scheduled. 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 No medications scheduled. Past Treatment and Therapy Plans No past plan information found. Radiation Treatments * Course [id number]_spine_202110/13/2021 - 10/13/2021 Treatment Period Energy Fraction Dose Fractions Total Dose Plans Planned T5 L2 SPINE 10/13/2021 - 10/13/2021 800 1 / 800 Reference Points Delivered T SPINE 10/13/2021 - 10/13/2021 800 Lifetime Dose Tracking * Chemical Lifetime Dose Automatic Entry Manual Entr y Fluoro Time 0.7 minutes 0.7 minutes 0 minutes Air kerma at the reference point (Ka,r) 25 mGy 2 5 mGy 0 mGy DLP 4,851 mGycm 4,851 mGycm 0 mGycm
--- OUTSIDE RECORDS SUMMARY | 2024-11-11 15:23 | XMS_ITS | Encounter Summary ---
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 Gender Identity Not on file Sexual Orientation Not on file documented as of this encounter Plan of Treatment Not on file documented as of this encounter Procedures Procedure Name Priority Date/Time Associated Diagnosis Comments SCAN - LABS 03/26/2023 documented in this encounter Results * SCAN - LABS (03/26/2023) us Provider Scanning Final Result documented in this encounter Visit Diagnoses Not on filedocumented in this encounter Care Teams Supervisor [employer] Fabricating Relationship Specialty Start Date End Date Eliot Webster MD [address] [place], [place] [id number] PCP - General Family Medicine 10/11/21 Hector Evangelista MD [address] [facility] [address] [place] [address] Radiation Oncologist Radiation Oncology 10/10/21 Lianna Kelly MD [address] [facility] MEDICAL ONCOLOGY, [address] [place], [place] [id number] Medical Oncologist/Scale Agent Medical Oncology 10/10/21 Bret Villalpando MD [address] [place] [address] Surgeon Neurosurgery 10/10/21 documented as of this encounter
--- OUTSIDE RECORDS SUMMARY | 2024-11-11 15:23 | XMS_ITS | Encounter Summary ---
Author Organization [facility] Address [address] [place] [address] Phone Care Team Providers Care Vp Production Name Role Phone Hector Evangelista MD Unavailable Lianna Kelly MD Unavailable [phone] Bret Villalpando MD Unavailable [phone] Eliot Webster MD Primary Care Provide r Encounter Details Date Type Department Care Team (Late st Contact Info) Description 11/10/2024 Telephone [facility] [address] [place] [id number] Leslee Vasquez, 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 Pending PA # [id number] documented in this encounter Plan of Treatment Not on file documented as of this encounter Visit Diagnoses Not on filedocumented in this encounter Care Teams Vp Production Relationship Specialty Start Date End Date Eliot Webster MD [address] [place] [address] PCP - General Family Medicine 10/11/21 Hector Evangelista MD [address] [facility] [address] [place] [address] Radiation Oncologist Radiation Oncology 10/10/21 Lianna Kelly MD [address] DIV MEDICAL ONCOLOGY, [address] [place] [address] Medical Oncologist/Instructor Physical Medical Oncology 10/10/21 Bret Villalpando MD [address] [place] [address] Surgeon Neurosurgery 10/10/21 documented as of this encounter
--- OUTSIDE RECORDS SUMMARY | 2024-11-11 15:23 | XMS_ITS | Encounter Summary ---
Author Organization [facility] [facility] Address [address] [place] [address] Phone Care Team Providers Care Business Analytics Faculty Member Name Role Phone Hector Evangelista MD Unavailable Lianna Kelly MD Unavailable Bret Villalpando MD Unavailable [phone] Eliot Webster MD Primary Care Provide r Encounter Details Date Type Department Care Team (Late st Contact Info) Description 04/06/2022 Orders Only [facility] Scanning, Provider Social History Tobacco Use Types Packs/Day Years Used Date Smoking Tobacco: Former Cigarettes 0.5 54.3 S tarted: 1971 Smokeless Tobacco: Never Comments:2 - ppd cigaret alex AUDIT-C Answer Date Recorded Q1: How often do you have a drink containing alc ohol? Patient declined 02/16/2022 Q2: How many drinks containi ng alcohol do you have on a typical day when you are drinking? Patient declined 02/16/2022 Q3: How often do you have si x or more drinks on one occasion? 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 Gender Identity Not on file Sexual Orientation Not on file documented as of this encounter Plan of Treatment Not on file documented as of this encounter Procedures Procedure Name Priority Date/Time Associated Diagnosis Comments SCAN - LABS 04/06/2022 documented in this encounter Results * SCAN - LABS (04/06/2022) Provider Scanning Final Result documented in this encounter Visit Diagnoses Not on filedocumented in this encounter Care Teams Business Analytics Faculty Member Relationship Specialty Start Date End Date Eliot Webster MD [address] [place] [address] PCP - General Family Medicine 10/11/21 Hector Evangelista MD [address] [facility] [address] [place] [address] Radiation Oncologist Radiation Oncology 10/10/21 Lianna Kelly MD [address] DIV MEDICAL ONCOLOGY[address] [place] [address] Medical Oncologist/Capsule Inspector Medical Oncology 10/10/21 Bret Villalpando MD [address] [place] [address] Surgeon Neurosurgery 10/10/21 documented as of this encounter
--- OUTSIDE RECORDS SUMMARY | 2024-11-11 15:23 | XMS_ITS | Clinical Summary ---
Author Organization [facility] al Address [address] [place] [address] Care Team Providers Care Pressroom Foreman Name Role Phone Hector Evangelista MD Unavailable Lianna Kelly MD Unavailable Bret Villalpando MD Unavailable [phone] Eliot Webster MD Primary Care Provide r Allergies No known active allergies Medications atorvastatin [...] 1 tablet (100 mcg total) by mouth early childhood assistant before breakfast Active oxyCODONE (ROXICODONE) 10 mg [...] Active Problems Problem Noted Date Diagnosed Date FDC (current) use of aromatase inhibitors 04/27/2022 Malignant neoplasm metastatic to bone 10/26/2021 Malignant neoplasm of overla pping sites of left female breast 10/10/2021 Cancer Staging:Clinical stage from 09/16/2021:Stage IV(cT3, cN0, pM1, GX, ER+, DC+, HER2-) - Signed by Hector Evangelista MD on 10/10/2021 Hypertension, unspecified type 09/15/2021 Spinal cord compression 09/14/2021 Overview (09/15/2021): Added automatically from request for surgery [id number] Encounters Date Type Department Care Team Description 11/10/2024 Telephone [facility] [address] [place] [id number] Leslee Vasquez, SERJIO 09/22/2024 12:30 PM ENVELOPE 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 Infusion [address] [address] Malignant neoplasm metastatic to bone (HCC) (Primary Dx); Malignant neoplasm of overlapping 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, estrogen receptor positive (HCC); 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 09/22/2024 11:30 AM ENVELOPE 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 Office Visit [facility] [address] [place] [phone] Lianna Kelly MD Malignant neoplasm of overlapping 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, estrogen receptor positive (HCC) (Primary Dx) 09/22/2024 11:00 AM ENVELOPE 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 Lab [address] [address] Malignant neoplasm of overlapping 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, estrogen receptor positive (HCC) from Last 3 Months Immunizations Immunization Administration Dates Next Due Influenza, Quadrivalent, Hig h Dose, Preservative Free, Intrr 09/21/2021 Influenza, Quadrivalent, Spl it, Preservative Free, Intramuscular 07/14/2019,06/07/2017 Influenza, Trivalent, IM (MDV) 06/09/2013 Influenza, Trivalent, Preservative Free, Intramu scular 03/23/2015 Pneumococcal Conjugate PCV 13 06/07/2017 Pneumococcal Polysaccharide PPV23 03/23/2015 Tdap 12/20/2015 ZOSTER Recombinant 02/26/2020,03/12/2018 Surgical History Surgery Date Site/Laterality Comments ARM SURGERY ~ 1962 Right laceration repair SECTION 1975, 1977, 1978 DILATION AND CURETTAGE OF UTERUS ~ 1981 SPINE SURGERY 09/16/2021 Medical History Medical History Date Comments COPD (chronic obstructive pu lmonary disease) (HCC) Hypertension Thyroid disease hypothryoidism HLD (hyperlipidemia) Cancer (HCC) 09/2021 presumed left br east cancer, new mass found recently Tobacco abuse Family History Medical History Relation Name Comments Sleep apnea Daughter COPD Father Cancer Father prostate Cancer Maternal Grandmother lymphom a, breast CA Coronary artery disease Mother Diabetes Mother Kidney disease Mother No Known Problems Son Relation Name Status Comments Daughter Alive Father (Age 92) Maternal Grandmother Mother (Age 53) Son Alive Social History Tobacco Use Types Packs/Day Years [...] on file Legal Sex Female 10:20 AM 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 Gender Identity Not on file Sexual Orientation Not on file Obstetrics History Last Filed Vital Signs Vital Sign Reading Time Taken Comments Blood Pressure 182/91 09/22/2024 11:39 AM ENVELOPE 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 Pulse 88 09/22/2024 11:39 AM ENVELOPE 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 Temperature 36.6 C (97.9 F) 09/22/2024 11:39 AM ENVELOPE 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 Respiratory Rate 18 09/22/2024 11:3 9 AM ENVELOPE 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 Oxygen Saturation 98% 09/22/2024 11: 39 AM ENVELOPE 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 Inhaled Oxygen Concentration - - Weight 117.1 kg (258 lb 3.2 oz) 025 11:39 AM ENVELOPE 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 Height 157.5 cm (5' 2 ) 09/21/2022 9:48 AM ENVELOPE 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 Body Mass Index 47.23 09/21/2022 9:48 AM ENVELOPE 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 Plan of Treatment Health Maintenance Due Date Last Done Comments Breast Cancer Screening-Mammogram 1950 Colon Cancer Screening-Colonoscopy 1950 Depression Screening 1950 Hepatitis C Screening 1950 Osteoporosis Screening-Bone Density Scan 1950 Hepatitis B Screening 11/03/1969 Well Visit 65+ 11/03/2016 Pneumococcal vaccine 65+ (3 of 3 - PPSV23, PCV20 or PCV21) 03/23/2020 06/07/2017, 03/23/2015 Covid-19 Vaccine (3 - Pfizer risk series) 12/06/2020 11/08/2020, 10/17/2020 Fall Risk Assessment 10/07/2022 10/07/2021, 09/21/19 22 Influenza Vaccine (Season Ended) 2025 09/21/2021, 07/14/2019, 06/07/2017, Additional history exists DTaP/Tdap/Td Vaccine (2 - Td or Tdap) 12/19/2025 12/20/2015 Zoster Vaccine Completed 02/26/2020, 03/12/2018 Medical Devices Implanted Type Area Spinner Concrete Pipe Device Identifier Shelf Expiration Date Model / Serial / Lot Allosource [id number] Crushed Chip Frozen Graft 30ml Bone Cancellous - [id number] Implanted:Qty: 1 on 09/16/2021 by Bret Villalpando MD at [facility] N/A: Spine Thoracic Allosource 08/27/2025 [id number] / / [id number] [facility] [id number] Actifuse Abx Resorbable; Scaffold; Osteostimulativ e; Granule 1-2 - [id number] Implanted:Qty: 1 on 09/16/2021 by Bret Villalpando MD at [facility] N/A: Spine Thoracic [facility] 10/08/2022 [id number] / / [id number] Depuy Spine [id number] Expedium 1 Inner Monoaxial Spine Screw Set Titanium - [id number] Implanted:Qty: 8 on 09/16/2021 by Bret Villalpando MD at [facility] N/A: Spine Thoracic Depuy Synthes Spine [id number] / / Depuy Spine [id number] Expedium 5.5mm 40mm Polyaxial Spine Screw Bone Titanium 5.5mm Chris - [id number] Implanted:Qty: 4 on 09/16/2021 by Bret Villalpando MD at [facility] N/A: Spine Thoracic Depuy Synthes Spine [id number] / / Depuy Spine [id number] Expedium 6mm 40mm 1 Innie Polyaxial Spine Screw Bone Titanium - [id number] Implanted:Qty: 2 on 09/16/2021 by Bret Villalpando MD at [facility] N/A: Spine Thoracic Depuy Synthes Spine [id number] / / Depuy Spine [id number] Expedium 6mm 45mm 1 Innie Polyaxial Spine Screw Bone Titanium - [id number] Implanted:Qty: 2 on 09/16/2021 by Bret Villalpando MD at [facility] N/A: Spine Thoracic Depuy Synthes Spine [id number] / / Depuy Spine [id number] Viper 2 150mm Straight Chris Spinal Titanium Mis - [id number] Implanted:Qty: 2 on 09/16/2021 by Bret Villalpando MD at [facility] N/A: Spine Thoracic Depuy Synthes Spine [id number] / / Procedures Procedure Name Priority Date/Time Associated Diagnosis Comments MANUAL DIFFERENTIAL Routine 09/22/2024 1 1:17 AM ENVELOPE 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 Malignant neoplasm of overlapping 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, estrogen receptor positive (HCC) EGFR Routine 09/22/2024 11:17 AM ENVELOPE 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 Malignant neoplasm of overlapping 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, estrogen receptor positive (HCC) DIFFERENTIAL AUTO Routine 09/22/2024 11: 17 AM ENVELOPE 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 Malignant neoplasm of overlapping 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, estrogen receptor positive (HCC) PHOSPHORUS Routine 09/22/2024 11:17 AM ENVELOPE 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 Malignant neoplasm of overlapping 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, estrogen receptor positive (HCC) CANCER ANTIGEN 15-3 Routine 09/22/2024 1 1:17 AM ENVELOPE 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 Malignant neoplasm of overlapping 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, estrogen receptor positive (HCC) CBC WITH AUTO DIFFERENTIAL Routine 09/22/2024 11:17 AM ENVELOPE 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 Malignant neoplasm of overlapping 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, estrogen receptor positive (HCC) COMPREHENSIVE METABOLIC PANEL Routine 09/22/2024 11:17 AM ENVELOPE 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 Malignant neoplasm of overlapping 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, estrogen receptor positive (HCC) from Last 3 Months Results * eGFR (09/22/2024 11:17 AM ENVELOPE 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) eGFR 65 >=60 mL/min/1. 73 m2 Comment: [...] of Race in Diagnosing Kidney Disease, JASN 202). The CKD-EPI equation should not be used for patients with unstable renal function and has not been validated in children and those over 70. Current interpretive data was last reviewed 2021. Blood 09/22/2024 11:1 7 AM ENVELOPE 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 09/22/2024 11:17 AM ENVELOPE 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 Lianna Kelly MD LAB BLOOD ORDERABLES F inal Result [facility] [place] [address] * (ABNORMAL) Differential, auto (09/22/2024 11:17 AM ENVELOPE 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) Neutrophil abs 1.4(L) 1.5 - 6.5 K/cumm Comment:Testing performed by : [facility], [address] [place] [id number] Imm gran abs 0.0 0.0 - 0.1 K/cumm [facility] Lymphocyte abs 1.1 0.8 - 3.3 K/cumm [facility] Monocyte abs 0.2 0.2 - 0.8 K/cumm [facility] Eosinophil abs 0.0 0.0 - 0.5 K/cumm [facility] Basophil abs 0.0 0.0 - 0.1 K/cumm [facility] Neutrophil pct 48.5 % [facility] Comment: Interpretive Data Percent cell count reference ranges are not reported, since discordance with absolute values may lead to misinterpretation of CBC data. Current Interpretive Data was last revised on 2017. Imm gran pct 1.1 % [facility] Comment: Interpretive Data Percent cell count reference ranges are not reported, since discordance with absolute values may lead to misinterpretation of CBC data. Current Interpretive Data was last revised on 2017. Lymphocyte pct 40.4 % [facility] Comment: Interpretive Data Percent cell count reference ranges are not reported, since discordance with absolute values may lead to misinterpretation of CBC data. Current Interpretive Data was last revised on 2017. Monocyte pct 8.2 % [facility] Comment: Interpretive Data Percent cell count reference ranges are not reported, since discordance with absolute values may lead to misinterpretation of CBC data. Current Interpretive Data was last revised on 2017. Eosinophil pct 0.7 % [facility] Comment: Interpretive Data Percent cell count reference ranges are not reported, since discordance with absolute values may lead to misinterpretation of CBC data. Current Interpretive Data was last revised on 2017. Basophil pct 1.1 % [facility] Comment: Interpretive Data Percent cell count reference ranges are not reported, since discordance with absolute values may lead to misinterpretation of CBC data. Current Interpretive Data was last revised on 2017. Blood 09/22/2024 11:1 7 AM ENVELOPE 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 09/22/2024 11:17 AM ENVELOPE 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 Lianna Kelly MD LAB BLOOD ORDERABLES F inal Result [facility] [place] [address] * (ABNORMAL) CBC with auto differential (09/22/2024 11:17 AM ENVELOPE 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) WBC 2.8(L) 3.8 - 9.9 K/cumm Comment:Testing performed by : [address] [address] Hgb 11.5(L) 11.9 - 15.5 g/dL [facility] Comment:Testing performed by : [address] [address] Hct 35.2(L) 35.6 - 45.5 % [facility] Comment:Testing performed by : [address] [place] [address] Plt 120(L) 150 - 400 K/cumm [facility] Comment:Testing performed by : [facility], [address] [place] [address] MPV 10.1 9.1 - 12.3 fL [facility] RBC 3.25(L) 3.90 - 5.20 M/cumm [facility] MCV 108.3(H) 81.3 - 96.4 fL [facility] MCH 35.4(H) 27.1 - 33.3 pg [facility] MCHC 32.7 32.3 - 35.7 g/dL [facility] RDW CV 16.3(H) 11.1 - 14.9 % [facility] RDW SD 64.4(H) 35.7 - 48.1 fL [facility] NRBC abs 0.00 0.00 - 0.01 K/cumm [facility] Blood 09/22/2024 11:1 7 AM ENVELOPE 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 09/22/2024 11:17 AM ENVELOPE 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 Lianna Kelly MD LAB BLOOD ORDERABLES F inal Result Performing Organization Address City/[facility] Co de Phone Number [facility] [place] [address] * Cancer antigen 15-3 (09/22/2024 11:17 AM ENVELOPE 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) CA 15-3 ag 17.3 <=25.0 units/mL Comment: Interpretive Data The Gigi CA 15-3 assay procedure was used. Results from different manufacturers or methods may not be comparable. Serial testing should be performed using the same method. Blood 09/22/2024 11:1 7 AM ENVELOPE 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 09/22/2024 12:54 PM ENVELOPE 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 Lianna Kelly MD LAB BLOOD ORDERABLES F inal Result Performing Organization Address City/[facility]/ZIP Co de Phone Number [facility] [place] [address] * (ABNORMAL) Manual Differential (09/22/2024 11:17 AM ENVELOPE 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) [facility] Differential Auto RBC morphology Present(A ) [facility] Polychromasia 3-7/HPF(A ) [facility] Anisocytosis Slight(A) [facility] Macrocytes 3-7/HPF(A ) [facility] Elliptocytes 3-7/HPF(A ) [facility] Platelet estimate Decreased (A) [facility] Blood 09/22/2024 11:1 7 AM ENVELOPE 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 09/22/2024 11:17 AM ENVELOPE 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 Lianna Kelly MD LAB BLOOD ORDERABLES F inal Result Performing Organization Address [facility] Co de Phone Number [facility] [place] [address] * Phosphorus (09/22/2024 11:17 AM ENVELOPE 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) [facility] Phosphorus, pl 3.0 2.3 - 4.5 mg/dL Comment:Testing performed by : [address] [address] Blood 09/22/2024 11:1 7 AM ENVELOPE 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 09/22/2024 11:17 AM ENVELOPE 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 Lianna Kelly MD LAB BLOOD ORDERABLES F inal Result Performing Organization Address [facility] Co de Phone Number [facility] [place] [address] * Comprehensive metabolic panel (09/22/2024 11:17 AM ENVELOPE 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) [facility] Sodium 139 135 - 145 mmol/L Comment:Testing performed by : [address] [address] Potassium, pl 4.0 3.3 - 4.9 mmol/L [facility] Chloride 104 97 - 110 mmol/L [facility] CO2 27 22 - 32 mmol/L [facility] Anion gap 8 2 - 15 mmol/L [facility] BUN 8 6 - 25 mg/dL [facility] Creatinine 0.93 0.60 - 1.10 mg/dL [facility] Glucose 113 70 - 199 mg/dL [facility] Comment: Interpretive Data Fasting glucose >/= 126 [...] 2022. Calcium 9.7 8.5 - 10.3 mg/dL [facility] Bilirubin, total 0.4 0.1 - 1.2 mg/dL [facility] Protein, pl 7.6 6.5 - 8.5 g/dL [facility] Albumin 4.0 3.5 - 5.0 g/dL [facility] Alk phos 93 40 - 130 Units/L [facility] ALT 12 7 - 45 Units/L [facility] AST 15 10 - 45 Units/L [facility] Blood 09/22/2024 11:1 7 AM ENVELOPE 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 09/22/2024 11:17 AM ENVELOPE 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 Lianna Kelly MD LAB BLOOD ORDERABLES F inal Result [facility] Department [place] [address] from Last 3 Months Insurance [facility] GENERIC COPAY ASSIST [id number] [place] [address] MEDICARE Advance Directives For more information, please contact: [phone] * Full Code (Latest Code Status on File) Date Activated Date Inactivated Comments 09/15/2021 12:02 PM 09/21/2021 7:08 PM Care Teams Pressroom Foreman Relationship Specialty Start Date End Date Eliot Webster MD [address] [place] [address] PCP - General Family Medicine 10/11/21 Hector Evangelista MD [address] [facility] [address] [place] [address] Radiation Oncologist Radiation Oncology 10/10/21 Lianna Kelly MD [address] [facility] [place] [address] Medical Oncologist/Financial Foundations Representative Medical Oncology 10/10/21 Bret Villalpando MD [address] [place] [address] Surgeon Neurosurgery 10/10/21
--- OUTSIDE RECORDS SUMMARY | 2024-11-11 15:24 | XMS_ITS | Encounter Summary ---
Author Organization [facility] [employer] [facility] Address [address] [place] [address] Phone Care Team Providers Care Manager Field Services Name Role Phone No, Physician Primary Care Provider [phone] Hector Evangelista MD Unavailable Lianna Kelly MD Unavailable [phone] Bret Villalpando MD Unavailable [phone] No, Physician Primary Care Provider [phone] Eliot Webster MD Primary Care Provide r Encounter Details Date Type Department Care Team (Late st Contact Info) Description 09/26/2021 Telephone [facility] Oncology [facility] 7th [place] [address] [place] [address] Radhika Toure Social History Tobacco Use Types Packs/Day Years Used Date Smoking Tobacco: Every Day Cigarettes 0.5 54.3 Started: 1969 Smokeless Tobacco: Never Comments:2 - ppd cigaret [...] on file 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 Gender Identity Not on file Sexual Orientation Not on file documented as of this encounter Plan of Treatment Not on file documented as of this encounter Visit Diagnoses Not on filedocumented in this encounter Care Teams Manager Field Services Relationship Specialty Start Date End Date No, Physician PCP - General 09/21/21 10/06/21 No, Physician PCP - General 10/10/21 10/10/21 Eliot Webster MD [address] [place] [address] PCP - General Family Medicine 10/11/21 Hector Evangelista MD [address] [facility] # [address] [place] [address] Radiation Oncologist Radiation Oncology 10/10/21 Lianna Kelly MD [address] [facility], [address] [place] [address] Medical Oncologist/Blocker Automatic Medical Oncology 10/10/21 Bret Villalpando MD [address] [place], [place] [id number] Surgeon Neurosurgery 10/10/21 documented as of this encounter
--- OUTSIDE RECORDS SUMMARY | 2024-11-11 15:24 | XMS_ITS | Encounter Summary ---
Author Organization [facility] Address [address] [place] [address] Phone Care Team Providers Care Meat And Seafood Manager Name Role Phone No, Physician Primary Care Provider [phone] Hector Evangelista MD Unavailable Lianna Kelly MD Unavailable Bret Villalpando MD Unavailable [phone] No, Physician Primary Care Provider Eliot Webster MD Primary Care Provide r Encounter Details Date Type Department Care Team (Late st Contact Info) Description 09/22/2021 Telephone 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 Gender Identity Not on file Sexual Orientation Not on file documented as of this encounter Plan of Treatment Not on file documented as of this encounter Visit Diagnoses Not on filedocumented in this encounter Care Teams Meat And Seafood Manager Relationship Specialty Start Date End Date No, Physician PCP - General 09/21/21 10/06/21 No, Physician PCP - General 10/10/21 10/10/21 Eliot Webster MD [address], [place] [address] PCP - General Family Medicine 10/11/21 Hector Evangelista MD [address] [facility] # [address] [place] [address] Radiation Oncologist Radiation Oncology 10/10/21 Lianna Kelly MD [address] DIV [facility] ON[facility]OGY, [address] [place] [address] Medical Oncologist/Claims Customer Service Representative Medical Oncology 10/10/21 Bret Villalpando MD [address] [place] [address] Surgeon Neurosurgery 10/10/21 documented as of this encounter
[2024-11-11 15:25] LABS: Alanine Aminotransferase 22 U/L (14-59); Albumin Level 3.6 g/dL (3.4-5.0); Alkaline Phosphatase 113 U/L (46-116); Anion Gap 10 mmol/L (4-12); Aspartate Amino Transferase 15 U/L (15-37); Bilirubin,Total 0.7 mg/dL (0.00-1.00); Blood Urea Nitrogen 14 mg/dL (7-18); Calcium 9.7 mg/dL (8.5-10.1); Carbon Dioxide 32 mmol/L (21-32); Chloride 100 mmol/L (98-108); Estimated Glomerular Filt Rate 54; Glucose 97 mg/dL (70-99); Osmolality Calculated 294 mOsm/kg (285-295); Potassium 4.3 mmol/L (3.5-5.1); Sodium 142 mmol/L (136-145); Total Protein 7.9 g/dL (6.4-8.2)
== END 2024-11-11 13:52 | disposition home or self-care (01) ==
PROVIDERS: PCP Family Medicine; Visit Provider Nurse Practitioner Family
DX: R50.9 Fever, unspecified (principal); R05.9 Cough, unspecified; J44.9 Chronic obstructive pulmonary disease, unspecified
CPT/HCPCS: 36415; 71046; 80053; 85027